=== PATIENT | male | born 1955 | race African-American/Black ===

== ENCOUNTER 2017-03-04 10:58 | Inpatient (IN) | payer MEDICARE, MEDICAID ==
[2017-03-04 12:26] LABS: Prothrombin Time 11.8 SEC (12.0-14.7)
[2017-03-04 12:27] LABS: PTT 28.2 SEC (22.9-36.1)
[2017-03-04 12:40] LABS: ALT (SGPT) 116 U/L (8-55); AST (SGOT) 101 U/L (5-34); Alkaline Phosphatase 263 U/L (40-150); Anion Gap 17 mmol/L (10-20); BUN (Urea Nitrogen) 39 mg/dL (8.4-25.7); Bilirubin, Total 0.3 mg/dL (0.2-1.2); Calc. Creatinine Clearance 0 mL/min (70-130); Carbon Dioxide 16 mmol/L (23-31); Chloride 112 mmol/L (98-107); Estimated GFR-MDRD 21; Globulin 4.7 g/dL (2.4-3.5); Protein, Total 8.9 g/dL (5.8-8.1)
[2017-03-04 12:45] LABS: Hematocrit 47.7 % (42.0-52.0); Mean Platelet Volume 10.4 fL (7.4-10.4); Red Blood Cell (RBC) Count 5.02 mill/uL (4.70-6.10); White Blood Cell (WBC) Count 8.3 thou/uL (4.8-10.8)
[2017-03-04 12:46] LABS: Band 1 % (5-11); Neutrophil 32 % (42-75)
[2017-03-04 15:07] VITALS: BMI 26.8
[2017-03-04] MEDS ORDERED: Ondansetron ODT 4 MG TAB SL PRN (15:10)
[2017-03-04] MEDS ORDERED: Ondansetron HCl/PF 4 MG/2 ML Vial IVP PRN ×2 (15:10→15:18)
[2017-03-04] MEDS ORDERED: hydrALAZINE 20 MG/ML VIAL SLOW IVP PRN (15:18)
[2017-03-04] MEDS ORDERED: HYDROcodone/Acetaminophen 5/325 mg Tablet PO PRN (15:18)
[2017-03-04] MEDS ORDERED: hydrALAZINE 25 MG TAB PO PRN (15:18)
[2017-03-04] MEDS ORDERED: Acetaminophen 325 MG TAB PO PRN (15:18)
[2017-03-04] MEDS: Heparin 5,000 UNITS/ML VIAL SC SCH ×2 (17:54→22:07)
--- NOTE | 2017-03-04 18:10 | HP ---
The patient currently does not have a primary physician. He says he had been seeing a doctor at [facility] , but he says he believes that his primary care physician and now he is only seeing Dr. Sheree tan for his end-stage renal disease. CHIEF COMPLAINT: "My graft is not functioning anymore." HISTORY OF PRESENT ILLNESS: Mr. Rios is a pleasant 61-year-old -[place] male who has a his tory of end-stage renal disease on hemodialysis. He also has a history of hypertension and hyperpara thyroidism. He was in his usual state of health until he noticed that his fistula was not working. Apparently, he came in for dialysis and they were unable to access it. There was no thrill or any br uit present. For this reason, he was sent over to our facility for admission. He says that he has n ot had any complaints. He denies any pain in his arm. He denies any swelling. He has not had any o ther symptoms such as chest pain or shortness of breath. He denies feeling dizzy or lightheaded and actually feels fine. REVIEW OF SYSTEMS: CONSTITUTIONAL: There have been no fever, no chills, no night sweats, no weight loss. HEENT: No headaches, no dizziness, no visual changes, no sore throat, no rhinorrhea, neck malorie n, no adenopathy. PULMONARY: No hemoptysis, no cough, no wheezing. CARDIOVASCULAR: He denies any chest pain, no shortness of breath, no PND, no orthopnea. GASTROINTESTINAL: He denies abdominal malorie n, no nausea, no vomiting, no change in bowels. GENITOURINARY: No urinary frequency, hematuria, no hesitancy. NEUROLOGIC: No focal weakness, numbness, no seizures. PSYCHIATRIC: No symptoms of anxi ety or depression. SKIN AND INTEGUMENT: No skin changes. No rash. PAST MEDICAL HISTORY: Significant for hypertension, end-stage renal disease on hemodialysis, hyperpa rathyroidism, coronary artery disease, hyperlipidemia, and cerebrovascular disease. PAST SURGICAL HISTORY: He has had right arm upper extremity fistula placed. He also has a left arm fistula which is nonfunctioning. He has had cholecystectomy. ALLERGIES: No known drug allergies. SOCIAL HISTORY: He is single. He lives alone. He smokes about half a pack of cigarettes a day. He also drinks about 3-4 beers daily. FAMILY HISTORY: Significant for hypertension and diabetes. CURRENT MEDICATIONS: The patient says he is not taking any medications. When asked if this was felicia use he was instructed not to, he is a bit elusive. He says that he had been on Sensipar before, but was taken off of it and is currently not taking any medications. PHYSICAL EXAMINATION: GENERAL: He is alert and oriented. He appears to be in no acute distress. He is well-developed and well-nourished. VITAL SIGNS: Blood pressure was 149/99, heart rate 67, respiratory rate of 19, temperature is 97.7. HEENT: Pupils are equal, round, and reactive. Extraocular muscles are intact. His sclerae are anic teric. Throat no erythema, no exudates. NECK: There is no adenopathy, no bruits. LUNGS: Clear to auscultation. I did not appreciate any wheezing or rales. CARDIOVASCULAR: He has a normal S1 and S2. I did not appreciate an S3 or S4. No murmurs, clicks or rubs. ABDOMEN: Soft, nontender, and nondistended. Positive for bowel sounds. There is no rebound, no gua rding. EXTREMITIES: He has got some trace pedal edema on the right greater than the left, but otherwise, th ere is no edema. He has got palpable dorsalis pedis pulses. Neurologic: Neurologically, the exam is nonfocal. LABORATORY DATA: His white blood cell count is 8.3, hemoglobin 15.1, hematocrit is 47.7, and platele t count is 154. INR is 0.9. Sodium 139, potassium 5.7, chloride is 112, CO2 of 16, BUN of 39, creat inine 3.5, and glucose of 74. ASSESSMENT AND PLAN: 1. This is a pleasant 61-year-old gentleman that was sent over to the emergency room due to a nonfun ctioning arteriovenous fistula. His earth burner has already been contacted and the plan is for an e mergent dialysis access to be placed. The patient's blood pressure is slightly elevated; however, he did not have his dialysis today. He is not on any medications for blood pressure. Therefore, we wi ll monitor the trend and treat him with medication p.r.n. and hold off starting any medication unless indicated. 2. History of coronary artery disease, again not on any medications. He likely would benefit at [facility] from an aspirin daily, possibly even a very low dose beta sukhi; however, will review further hi s records and possibly discuss with his earth burner whether or not there is any specific contraindic ation for medications and he will be placed on deep venous thrombosis and gastrointestinal prophylaxi s.
[2017-03-04] MEDS: Docusate 100 MG CAP PO SCH (22:03)
[2017-03-04] MEDS: Famotidine 20 MG TAB PO SCH ×2 (22:03→22:07)
--- NOTE | 2017-03-04 22:17 | OP ---
PROCEDURE: Right femoral dialysis catheter placement under ultrasound guidance. INDICATION: Hyperkalemia with clotted access. [employer] APPLICATION DEVELOPER: Manjit Gomez M.D. MEDICATION: A 2% lidocaine. DETAILS OF PROCEDURE: After informed consent was obtained, the patient was prepped and draped in a s terile fashion. The right femoral vein was approached in layers under real time ultrasound guidance. After serial dilatation, a Trialysis catheter was secured in place and all ports were flushed. The patient tolerated the procedure very well with no immediate postop complications. Line is good for use for hemodialysis.
--- NOTE | 2017-03-05 00:20 | CON ---
DATE OF CONSULTATION: 03/04/2017 CONSULTING PHYSICIAN: Dr. Manjit Gomez. REQUESTING PHYSICIANS: ER physician and Dr. Roca. REASON FOR CONSULTATION: Hyperkalemia in a patient with end-stage renal disease with clotted access. IMPRESSION: 1. Hyperkalemia in the context of problem #2. 2. End-stage renal disease. 3. Clotted right upper arm graft. PLAN: 1. Emergent hemodialysis to address the hyperkalemia pending thrombectomy of his graft, which can on ly be done on Tuesday. 2. Low potassium diet. 3. Status post hemodialysis. Patient's hyperkalemia is likely to be resolved. Therefore, in the mo rn, a repeat chemistry will be done and if it shows that the potassium has been resolved, patient can be discharged at that time for thrombectomy to be done as an outpatient on Tuesday. HISTORY OF PRESENT ILLNESS: A 61-year-old gentleman with end-stage renal disease, hemodialysis depen dent on a Tuesday, Tuesday and Tuesday schedule, who was said to have missed a dialysis session. How ever, was supposed to go to dialysis today, but unfortunately his right upper arm graft was clotted; therefore, has no way of undergoing hemodialysis. Patient presented to the ER for evaluation and was noted to have hyperkalemia. As a result of this, decision has been taken to involve Renal in the ma nagement of this case. PAST MEDICAL HISTORY: Significant for end-stage renal disease, hemodialysis dependent, hyperparathyr oidism and one episode of seizure. MEDICATIONS: Reviewed as documented on [employer]. ALLERGIES: No known drug allergies. FAMILY HISTORY: Not significantly related to the presenting illness. PHYSICAL EXAMINATION: GENERAL: The patient was found not to be in any obvious distress, noted with the following. VITAL SIGNS: Afebrile, blood pressure 134/80, respiratory rate of 18 and O2 sat 98%. HEENT: Unremarkable with moist oral mucosa. No conjunctival injection or icterus. NECK: Supple. CARDIOVASCULAR SYSTEM: First and second heart sounds were heard. RESPIRATORY SYSTEM: Clear to auscultation. DIGESTIVE SYSTEM: Revealed a benign abdomen. EXTREMITIES: No peripheral edema. SKIN: No new gross rash. LYMPHATICS: No peripheral lymphadenopathy. SUMMARY: A 61-year-old gentleman with end-stage renal disease, hemodialysis dependent, who presented here with clotted access and noted to be hyperkalemic in need for emergent hemodialysis. Thank you for this consultation. We will follow with you.
[2017-03-05 06:21] LABS: Anion Gap 11 mmol/L (10-20); BUN (Urea Nitrogen) 21 mg/dL (8.4-25.7); Calc. Creatinine Clearance 44 mL/min (70-130); Calcium 9.2 mg/dL (7.8-10.44); Carbon Dioxide 27 mmol/L (23-31); Chloride 106 mmol/L (98-107); Estimated GFR-MDRD 31
[2017-03-05 06:37] LABS: Hematocrit 43.2 % (42.0-52.0); Mean Platelet Volume 10.2 fL (7.4-10.4); Neutrophil 40 % (42-75); Red Blood Cell (RBC) Count 4.59 mill/uL (4.70-6.10); White Blood Cell (WBC) Count 5.7 thou/uL (4.8-10.8)
[2017-03-05] MEDS: Famotidine 20 MG TAB PO SCH (08:26)
[2017-03-05] MEDS: Docusate 100 MG CAP PO SCH (08:26)
[2017-03-05] MEDS: Heparin 5,000 UNITS/ML VIAL SC SCH (08:27)
--- NOTE | 2017-03-05 09:51 | PDOC.PN ---
- Subjective Encounter Start Date: 03/05/17 Encounter Start Time: 09:49 Mr. Rios was seen today in follow-up of clotted AV- fistula. he says he is feeling fine this morning, and has no complaints. - Objective Resuscitation Status: Resuscitation Status FULL:Full Resuscitation MAR Reviewed: Yes Vital Signs & Weight: Vital Signs (12 hours) Temp Pulse Resp BP Pulse Ox 03/05/17 08:00 97.9 F 59 L 17 139/85 95 03/05/17 03:25 97.7 F 57 L 16 113/70 03/04/17 22:30 98.0 F 70 18 162/91 H Weight Weight 222 lb I&O: 03/04/17 03/05/17 03/06/17 06:59 06:59 06:59 Intake Total 375 120 Output Total 400 Balance -25 120 Result Diagrams: 03/05/17 05:23 03/05/17 05:23 Phys Exam - Physical Examination HEENT: PERRLA Respiratory: no wheezing, no rales, no rhonchi, clear to auscultation bilateral Cardiovascular: RRR, no significant murmur Gastrointestinal: soft, non-tender, positive bowel sounds Musculoskeletal: no edema Dx/Plan (1) Dialysis AV fistula malfunction Code(s): T82.590A - [facility] COMPL OF SURGICALLY CREATED ARTERIOVENOUS FISTULA, INIT Status: Acute (2) Hyperkalemia Code(s): E87.5 - HYPERKALEMIA Status: Acute (3) End stage renal failure on dialysis Code(s): N18.6 - END STAGE RENAL DISEASE; Z99.2 - DEPENDENCE ON RENAL DIALYSIS Status: Chronic - Plan * AV- fistula malfunction- Discussed with Dr. Saravia. He will see patient on Tuesday in his dialysis center, and will perform the procedure to de-clott the access * Hyperkalemia- resolved with dialysis yesterday * Patient is stable for discharge home.
[2017-03-05 12:20] VITALS: BP 148/82; TEMP 98.1
--- NOTE | 2017-03-05 16:40 | DIS ---
DATE OF ADMISSION: 03/04/2017 DATE OF DISCHARGE: 03/05/2017 PRIMARY CARE PHYSICIAN: None. DISCHARGE DISPOSITION: Home. PRIMARY DISCHARGE DIAGNOSES: 1. Clotted arteriovenous fistula. 2. End-stage renal disease on hemodialysis. 3. Hypertension, currently not on medications. 4. Coronary artery disease. 5. History of hyperlipidemia. 6. Cerebrovascular disease. DISCHARGE MEDICATIONS: None. The patient will discuss with Dr. Saravia which medications he need s to be taking. I discussed this with Dr. Saravia over the phone as well prior to discharge. CODE STATUS: FULL CODE. ALLERGIES: No known drug allergies. HOSPITAL COURSE: Mr. Rios is a pleasant 61-year-old gentleman who noticed that his dialysis cathet er was clotted. He was unable to undergo dialysis and as such his cardiology associate instructed him to com e to the emergency room. He was admitted and a temporary dialysis catheter was placed. He underwent emergent dialysis. He had been hyperkalemic and post-dialysis, his potassium was corrected. The pl an is for the patient to see Dr. Patricia Saravia in his office on Tuesday at which time the dialys is catheter will be declotted. Dr. Saravia has requested that the temporary catheter be removed a nd he will go over his medications in the outpatient setting to see if he requires any prescription m edications.
--- NOTE | 2017-03-06 07:14 | PRG ---
DATE OF SERVICE: 03/05/2017 SUBJECTIVE: The patient is noted with no new complaints. OBJECTIVE: VITAL SIGNS: Afebrile with temperature 97.9, pulse 59, respiratory rate 17, O2 saturation 97%, blood pressure 148/82. HEENT: Unremarkable with moist oral mucosa. No conjunctival injection or icterus. . IMPRESSION: 1. End-stage renal disease on hemodialysis. 2. Hyperkalemia since resolved, status post hemodialysis. PLAN: 1. The patient from the renal standpoint is good for discharge. 2. He will follow up with on Tuesday to reevaluate the access on Tuesday. 3. Further management to be dependent on the clinical course.
== END 2017-03-05 12:40 | disposition home or self-care (01) | DRG 314 ==
LOC: ERS 10:58 → 2NO 14:27
PROVIDERS: ADMIT Internal Medicine; ATTEND Internal Medicine
PROC: 5A1D70Z Performance of Urinary Filtration, Intermittent, Less than 6 Hours Per Day (ICD-10-PCS; principal; 2017-03-04)
DX: T82.590A Other mechanical complication of surgically created arteriovenous fistula, initial encounter (principal); N18.6 End stage renal disease; Z99.2 Dependence on renal dialysis; F17.210 Nicotine dependence, cigarettes, uncomplicated; Z86.73 Personal history of transient ischemic attack (TIA), and cerebral infarction without residual deficits; I25.10 Atherosclerotic heart disease of native coronary artery without angina pectoris; E87.5 Hyperkalemia
CPT/HCPCS: 36415; 80048; 80053; 85025; 85610; 85730; 90935; 93005; C1752; G0257; J1644

== ENCOUNTER 2017-03-25 15:24 | Inpatient (IN) | payer MEDICARE, MEDICAID ==
--- NOTE | 2017-03-25 16:56 | RAD ---
AP VIEW OF THE CHEST 03/25/17 INDICATION: weakness. IMPRESSION: No acute cardiopulmonary abnormality. The examination is not appreciably changed from the comparison dated 11/24/16. The left IJ central venous catheter has been removed. Endovascular stent in the axilla ry regions are similar appearing. POS: CARYN
[2017-03-25 17:17] LABS: Hemoglobin 9.4 g/dL (14.0-18.0); Mean Corpuscular HGB CONC 32.5 g/dL (32.0-36.0); Mean Corpuscular Hemoglobin 29.3 pg (27.0-31.0); Mean Corpuscular Volume 90.3 fl (80.0-94.0); Mean Platelet Volume 11.8 fL (7.4-10.4); Platelet Count 190 thou/uL (130-400); White Blood Cell (WBC) Count 14.9 thou/uL (4.8-10.8)
[2017-03-25 17:34] LABS: ALT (SGPT) 197 U/L (8-55); AST (SGOT) 286 U/L (5-34); Albumin 2.8 g/dL (3.4-4.8); Alkaline Phosphatase 374 U/L (40-150); Anion Gap 22 mmol/L (10-20); BUN (Urea Nitrogen) 123 mg/dL (8.4-25.7); Bilirubin, Total 6.8 mg/dL (0.2-1.2); CK (CPK) 141 U/L (30-200); Calc. Creatinine Clearance 0 mL/min (70-130); Calcium 8.7 mg/dL (7.8-10.44); Carbon Dioxide 13 mmol/L (23-31); Chloride 108 mmol/L (98-107); Estimated GFR-MDRD 5; Globulin 4.6 g/dL (2.4-3.5); Glucose 106 mg/dL (80-115); Potassium 6.4 mmol/L (3.5-5.1); Protein, Total 7.4 g/dL (5.8-8.1); Sodium 137 mmol/L (136-145)
[2017-03-25 17:39] LABS: CKMB 0.2 ng/mL (0-6.6); Troponin I 0.019 ng/mL (< 0.028)
[2017-03-25 17:49] LABS: Anisocytosis SLIGHT = 6-15 cells (100X) (0-5/hpf); Band 19 % (5-11); Burr Cells SLIGHT = 2-5 cells (100X) (0-1/hpf); Large Platelets SLIGHT; Lymphocytes 6 % (21-51); MDiff Complete? YES; Monocytes 2 % (0-10); Neutrophil 71 % (42-75); Ovalocytes SLIGHT = 2-5 cells (100X) (0-1/hpf); PLT Morphology Comment Appears Adequate; Polychromasia SLIGHT = 2-3 cells (100X) (0-2/hpf); Reactive Lymphocytes 2 % (0-10); Schistocytes SLIGHT = 2-5 cells (100X) (0-1/hpf); Target Cells SLIGHT = 2-5 cells (100X) (0-1/hpf); Tear Drops SLIGHT = 2-5 cells (100X) (0-1/hpf)
[2017-03-25 19:39] LABS: HBSAg Index 0.09 S/CO (0-0.99); Hep B Surf Ag Non-Reactive S/CO (NonReactive)
[2017-03-25 20:40] VITALS: BMI 30.8
[2017-03-25] MEDS ORDERED: Dextrose 5 % And 0.9 % NaCl 1,000 ML IV SCH ×2 (20:45)
--- NOTE | 2017-03-25 20:56 | PDOC.EVN ---
Event Note - Event Note Event Note: [id number] 1. ESRD 2. Hyperkalemia 3. Metabolic acidosis 4. AOCD 5. Acute bronchitis plan: see orders
[2017-03-25] MEDS ORDERED: Acetaminophen 325 MG TAB PO SCH (21:15)
[2017-03-25] MEDS ORDERED: Ondansetron HCl/PF 4 MG/2 ML Vial IVP PRN (21:41)
[2017-03-25] MEDS ORDERED: HYDROcodone/Acetaminophen 5/325 mg Tablet PO PRN (21:41)
[2017-03-25] MEDS ORDERED: Piperacillin/Tazobactam 4.5 GM in Sodium Chloride 0.9% 100 ML IVPB SCH (22:00)
[2017-03-25] MEDS: Piperacillin/Tazobactam 2.25 GM in Sodium Chloride 0.9% 100 ML IVPB SCH (22:00)
[2017-03-25] MEDS ORDERED: Sodium Chloride 0.9% 1,000 ML IV SCH (23:45)
--- NOTE | 2017-03-25 23:53 | HP ---
DATE OF ADMISSION: 03/25/2017 CHIEF COMPLAINT: Cough, chest congestion, fatigue. HISTORY OF PRESENT ILLNESS: Patient is a 61-year-old male with past medical history of end-stage rosa al disease, hypertension, hyperparathyroidism, coronary artery disease, hyperlipidemia, cerebrovascul ar accident, now came to the ER for fatigue. Patient is a poor historian. During history taking, luc merino kept saying yes or no and not answering all the questions. According to the notes and per cameron ent and ED physician, patient came to the ER because of the fatigue and cough. Cough associated with some sputum production and chest congestion also. Did not give what color the sputum is. Patient c omplains of an episode of vomiting also. Patient said he did not go to dialysis for the last few wee ks. Patient was recently discharged from the hospital on 03/05/2017 with diagnose of clotted AV fist roseanne. Patient denies any chest pain, denies any palpitations. PAST MEDICAL HISTORY: As per HPI. PAST SURGICAL HISTORY: AV fistula placement. SOCIAL HISTORY: Positive for alcohol usage, positive for smoking. Denies any drugs. FAMILY HISTORY: Positive for diabetes and hypertension. MEDICATIONS: Not able to obtain from the patient. REVIEW OF SYSTEMS: Patient is saying yes or no. Positive for cough and sputum production. All othe r review systems when I asked him he denied it. PHYSICAL EXAMINATION: CONSTITUTIONAL/VITAL SIGNS: At the time of H&P performed, blood pressure is 110/60, heart rate 75, r espiratory rate 18. GENERAL: The patient appears tired. HEENT: Nose normal. Anterior nares patent. Teeth poor dentition. NECK: Supple, no JVD. CARDIOVASCULAR: S1, S2 present. Regular rate and rhythm. No murmurs, no rubs, no gallops. RESPIRATORY SYSTEM: Diminished breath sounds bilaterally. Positive for crackles. Poor inspiratory effort. GASTROINTESTINAL: Abdomen is soft, nontender, no guarding, no organomegaly. INTEGUMENTARY: Dry skin. Loss of velocity seen. Chronic skin changes. MUSCULOSKELETAL: Positive for edema. Moves all 4 joints. PSYCHIATRIC: Mood calm. CRANIAL NERVE SYSTEM: Awake, follow some commands. LABORATORY DATA: At the time of H&P performed sodium 137, potassium 6.4, chloride 108, CO2 is 13, BU N of 123, creatinine 13.52. AST 286, ALT 197, alkaline phosphatase 374, albumin 2.8, globulin 4.6. White count 14.9, hemoglobin 9.4, platelet count is 190. ASSESSMENT AND PLAN: The patient is 61 years old male. 1. End-stage renal disease plus hyperkalemia, metabolic acidosis. Patient was seen by Dr. Devendra cavazos. Already, patient is scheduled to have dialysis tonight. I did speak to Dr. Saravia. He will get dialysis tonight. Patient is currently on IV fluids. I will go ahead and hold IV fluids at this time. 2. Hyperkalemia should improve with dialysis. Patient does not get dialysis tonight then we will go ahead and treat hyperkalemia. Per patient's managing cognitive engineer, patient is supposed to get dialysis. 3. Hypertension. Hold blood pressure medications if blood pressure is on the low side. 4. Metabolic acidosis. Monitor bicarbonate level closely. Plan to give 1 amp of bicarbonate push a lso. 5. Acute bronchitis. Plan to start patient on IV Zithromax and monitor patient closely. 6. History of anemia of chronic disease. Monitor hemoglobin closely. Case was discussed in detail with the patient.
[2017-03-25] MEDS: Hydrocortisone Sod Succ/PF 100 mg/2 ml Vial IVP SCH (23:58)
[2017-03-26] MEDS ORDERED: Albumin 25% 25 GM/100 ML BOT IVPB SCH (00:15)
[2017-03-26] MEDS ORDERED: Midodrine HCl 5 MG TAB PO SCH (00:15)
[2017-03-26 05:14] LABS: Albumin 2.8 g/dL (3.4-4.8); Anion Gap 19 mmol/L (10-20); BUN (Urea Nitrogen) 83 mg/dL (8.4-25.7); Calc. Creatinine Clearance 11 mL/min (70-130); Calcium 8.9 mg/dL (7.8-10.44); Carbon Dioxide 21 mmol/L (23-31); Chloride 105 mmol/L (98-107); Estimated GFR-MDRD 7; Glucose 130 mg/dL (80-115); Potassium 4.8 mmol/L (3.5-5.1); Sodium 140 mmol/L (136-145)
[2017-03-26 05:33] LABS: Band 27 % (5-11); Hemoglobin 8.7 g/dL (14.0-18.0); Hypochromia SLIGHT = 6-15 cells (100X) (0-5/hpf); Lymphocytes 7 % (21-51); MDiff Complete? YES; Mean Corpuscular HGB CONC 34.1 g/dL (32.0-36.0); Mean Corpuscular Hemoglobin 30.2 pg (27.0-31.0); Mean Corpuscular Volume 88.4 fl (80.0-94.0); Mean Platelet Volume 11.9 fL (7.4-10.4); Metamyelocyte 3 % (0-0); Monocytes 6 % (0-10); Myelocyte 2 % (0-0); Neutrophil 55 % (42-75); PLT Morphology Comment Appears Adequate; Platelet Count 199 thou/uL (130-400); RBC Distribution Width 15.7 % (11.5-14.5); Red Blood Cell (RBC) Count 2.87 mill/uL (4.70-6.10); White Blood Cell (WBC) Count 13.2 thou/uL (4.8-10.8)
[2017-03-26] MEDS: Piperacillin/Tazobactam 2.25 GM in Sodium Chloride 0.9% 100 ML IVPB SCH ×3 (05:59→21:21)
--- NOTE | 2017-03-26 08:23 | CON ---
DATE OF CONSULTATION: 03/25/2017 CONSULTING PHYSICIAN: Dr. Manjit Gomez. REQUESTING PHYSICIAN: with the ER. REASON FOR CONSULTATION: Need for emergency dialysis. IMPRESSION: 1. Sepsis, query source likely of biliary origin, but cannot rule out urinary tract infection. 2. Hyperkalemia in the context of skipped dialysis treatment. 3. Severe metabolic acidosis in the context of sepsis and skipped dialysis treatment. 4. End-stage renal disease, has no dialyzed this week. PLAN: 1. IV fluid bolus to show off the hemodynamics. 2. Broad-spectrum antibiotics bearing in mind coverage for biliary system. 3. Emergency hemodialysis would try to do a gentle dialysis tonight and a full dialysis tomorrow. T his is more or less to address the hyperkalemia and also to avoid dysequilibrium syndrome. HISTORY OF PRESENT ILLNESS: History is that of 61-year-old gentleman with end-stage renal disease, h emodialysis dependent on Tuesday, Tuesday, Tuesday, who has not dialyzed this week and presented to [facility] ER and showed obvious signs of sepsis. Patient noted with elevated potassium above 6 and is in si gnificant physical distress. PAST MEDICAL HISTORY: Significant for hypertension, end-stage renal disease, hyperparathyroidism, dy slipidemia, coronary artery disease, and CVA in the past. ALLERGIES: No known drug allergies. SOCIAL HISTORY: Significant for tobacco use. Denies alcohol. Patient is single. FAMILY HISTORY: Significant for diabetes. MEDICATIONS: Reviewed as documented on [employer]. ALLERGIES: No known drug allergies. LABORATORY INVESTIGATION: Significant for white count of 14,900. Potassium of 6.4, bicarbonate of 1 3, BUN of 123 with creatinine of 13.52, total bilirubin of 6.8. AST, ALT, and alkaline phosphatase a re all elevated. PHYSICAL EXAMINATION: GENERAL: Patient was found to be ill-looking noted with the following vital signs. VITAL SIGNS: Tachycardic, heart rate of 104, blood pressure of 100/60, respiratory rate of 28, O2 sa t of 96%. HEENT: Remarkable for conjunctival icterus. CARDIOVASCULAR SYSTEM: First and second heart sounds were heard, tachycardic. RESPIRATORY SYSTEM: Revealed of rales. DIGESTIVE SYSTEM: Revealed a benign abdomen. EXTREMITIES: No peripheral edema. SKIN: No new gross rash. LYMPHATICS: No peripheral lymphadenopathy. SUMMARY: A 61-year-old gentleman who presented here with obvious signs of sepsis. Thank you for this consultation. We will follow with you.
--- NOTE | 2017-03-26 08:59 | ULT ---
T UPPER QUADRANT ULTRASOUND: HISTORY: Abdominal pain. Sepsis. FINDINGS: The patient is post cholecystectomy. The common bile duct is within normal range measured at 4-5 mm. Liver appears mildly prominent measuring up to 3 cm. The pancreas is mostly obscured but appears u nremarkable as visualized. The right kidney is abnormal. There is cortical thinning and increased cortical echogenicity. Thee is a small cyst in the superior right kidney measuring up to 2.0 cm. No evidence of right hydronephr osis. IMPRESSION: 1. Post cholecystectomy. 2. Mild hepatomegaly. 3. The right kidney is abnormal with increased cortical echogenicity. Small right renal cyst. POS: H
[2017-03-26] MEDS: Hydrocortisone Sod Succ/PF 100 mg/2 ml Vial IVP SCH ×3 (09:27→23:53)
[2017-03-26] MEDS: Heparin 5,000 UNITS/ML VIAL SC SCH ×3 (09:28→21:21)
[2017-03-26] MEDS ORDERED: cefTRIAXone\\ROCEPHIN 1 GM in Sodium Chloride 0.9% 100 ML IVPB SCH (10:30)
[2017-03-26] MEDS ORDERED: Heparin 1,000 UNITS/ML VIAL ONE (11:11)
[2017-03-26] MEDS ORDERED: cefTRIAXone\\ROCEPHIN 1 GM, Syringe 0.4 ML in Sterile Water 9.6 ML SLOW IVP SCH (11:30)
--- NOTE | 2017-03-26 12:00 | PDOC.PN ---
- Subjective Encounter Start Date: 03/26/17 Encounter Start Time: 11:00 Subjective: awake, watching tv, not in distress - Objective MAR Reviewed: Yes Vital Signs & Weight: Vital Signs (12 hours) Temp Pulse Resp BP Pulse Ox 03/26/17 11:50 99.3 F 88 24 H 96/64 100 03/26/17 08:00 98.6 F 83 20 98 03/26/17 07:00 98.6 F 83 20 93/61 98 03/26/17 06:00 99.0 F 87 20 115/67 99 03/26/17 04:00 99.7 F H 86 20 108/64 100 03/26/17 00:45 112/70 03/26/17 00:31 92/50 L 03/26/17 00:15 76/60 L 03/26/17 00:00 99.1 F 98 22 H 80/42 L 99 Weight Weight 227 lb 6.4 oz I&O: 03/25/17 03/26/17 03/27/17 06:59 06:59 06:59 Intake Total 1800 Balance 1800 Result Diagrams: 03/26/17 04:27 03/26/17 04:27 Additional Labs: Accuchecks 03/25/17 20:39 POC Glucose 186 H Phys Exam - Physical Examination HEENT: PERRLA, sclera anicteric Neck: no JVD, supple Respiratory: no wheezing rales+ Cardiovascular: RRR, no significant murmur Gastrointestinal: soft, non-tender, positive bowel sounds Musculoskeletal: no edema, pulses present Neurological: non-focal, moves all 4 limbs Psychiatric: A&O x 3 Dx/Plan (1) Sepsis Status: Acute (2) Volume overload Code(s): E87.70 - FLUID OVERLOAD, UNSPECIFIED Status: Acute (3) Non-compliance with renal dialysis Code(s): Z91.15 - PATIENT'S NONCOMPLIANCE WITH RENAL DIALYSIS Status: Acute (4) DM type 2 (diabetes mellitus, type 2) Status: Chronic Qualifiers: Diabetes mellitus complication status: with kidney complications Diabetes mellitus complication detail: with chronic kidney disease Diabetes mellitus oil heaterman insulin use: without oil heaterman use Chronic kidney disease stage: on chronic dialysis Qualified Code(s): E11.22 - Type 2 diabetes mellitus with diabetic chronic kidney disease; N18.6 - End stage renal disease; N18.6 - End stage renal disease; N18.6 - End stage renal disease; N18.6 - End stage renal disease; Z99.2 - Dependence on renal dialysis; Z99.2 - Dependence on renal dialysis; Z99.2 - Dependence on renal dialysis; Z99.2 - Dependence on renal dialysis (5) Moderate malnutrition Code(s): E44.0 - MODERATE PROTEIN-CALORIE MALNUTRITION Status: Chronic (6) CAD (coronary artery disease) Code(s): I25.10 - ATHSCL HEART DISEASE OF [place] CORONARY ARTERY W/O ANG PCTRS Status: Chronic Qualifiers: Coronary Disease-Associated Artery/Lesion type: [place] artery [place] vs. transplanted heart: [place] heart Associated angina: without angina Qualified Code(s): I25.10 - Atherosclerotic heart disease of [place] coronary artery without angina pectoris (7) Dyslipidemia Code(s): E78.5 - HYPERLIPIDEMIA, UNSPECIFIED Status: Chronic (8) Transaminitis Code(s): R74.0 - NONSPEC ELEV OF LEVELS OF TRANSAMNS & LACTIC ACID DEHYDRGNSE Status: Acute (9) End stage renal failure on dialysis Code(s): N18.6 - END STAGE RENAL DISEASE; Z99.2 - DEPENDENCE ON RENAL DIALYSIS Status: Chronic - Plan had very little fluid removed with HD last evening due to hypotension -: tmax of 101 -: is on zosyn, consult , has 27%bands -: steroids for hypotension, got midodrinex1 yesterday -: echo, elevated lft's likely to passive congestion or due to sepsis * . Review of Systems - Medications/Allergies Allergies/Adverse Reactions: Allergies Allergy/AdvReac Type Severity Reaction Status Date / Time No Known Allergies Allergy Verified 03/04/17 15:13 Medications: Current Medications Acetaminophen (Tylenol) 650 mg PO NOW [facility] Stop: 03/29/17 23:59 Last Admin: 03/25/17 22:00 Dose: 650 mg Hydrocodone Bitart/Acetaminophen ([place] 5/325) 1 tab PO Q4H PRN PRN Reason: Moderate Pain (4-6) Albuterol/Ipratropium (Duoneb) 3 ml NEB [id number] RHETT Heparin Sodium (Porcine) (Heparin) 5,000 units SC TID [facility] Last Admin: 03/26/17 09:28 Dose: 5,000 units Hydrocortisone Sodium Succinate (Solu-Cortef) 100 mg IVP 0800,1600,2359 [facility] Last Admin: 03/26/17 09:27 Dose: 100 mg Piperacillin Sod/Tazobactam (Sod 2.25 gm/ Sodium Chloride) 100 mls @ 200 mls/ hr IVPB Q8HR [facility] Last Admin: 03/26/17 05:59 Dose: 100 mls Ceftriaxone Sodium 1 gm/ (Syringe 0.4 ml/ Sterile Water) 10 mls @ 120 mls/hr SLOW IVP 1130 [facility] Stop: 03/26/17 14:00 Ceftriaxone Sodium 1 gm/ (Syringe 0.4 ml/ Sterile Water) 10 mls @ 120 mls/hr SLOW IVP 1100 [facility] Influenza Virus Vaccine (Fluzone Quad [id number] Syringe) 0.5 ml IM .ONCE ONE Stop: 03/27/17 09:01 Ondansetron HCl (Zofran) 4 mg IVP Q6H PRN PRN Reason: Nausea/Vomiting Pneumococcal Polyvalent Vaccine (Pneumovax 23) 0.5 ml IM .ONCE ONE Stop: 03/27/17 09:01 Sodium Chloride (Flush - Normal Saline) 10 ml IVF Q12HR [facility] Last Admin: 03/26/17 09:28 Dose: 10 ml Sodium Chloride (Flush - Normal Saline) 10 ml IVF PRN PRN PRN Reason: Saline Flush Last Admin: 03/26/17 05:59 Dose: 10 ml
[2017-03-26] MEDS ORDERED: Sodium Chloride 0.9% 500 ML IV SCH (18:00)
--- NOTE | 2017-03-26 18:09 | CON ---
DATE OF CONSULTATION: 03/26/2017 HISTORY OF PRESENT ILLNESS: He is a 61-year-old gentleman admitted with sepsis, hyp ertension. He has seen Dr. Bennett before for MICU console. Rather poor historian, but apparently he sees Nephrology for renal failure. He was dialyzed last night on an emergency basis. A report from the ER states that he is weak, somewhat confused, lethargic, arousable. This has been going on for a pparently a period of time. Apparently, his last dialysis was 3 weeks ago. PAST MEDICAL HISTORY: Seizure disorder, encephalopathy, renal failure. PREVIOUS SURGERIES: Included access, multiple. Cholecystectomy, bladder and kidney surgery and abdo jasmine surgery. SOCIAL HISTORY: Alcoholic and tobacco abuse. HOME MEDICATIONS: Unknown home medicine. REVIEW OF SYSTEMS: Otherwise 10 point negative. PHYSICAL EXAMINATION: VITAL SIGNS: Sats are 98% on room air, temperature is 98, blood pressure 96/61. CHEST: Reveals extensive rhonchi. CARDIAC: Normal S1, S2, no gallops. ABDOMEN: Soft, no masses. EXTREMITIES: He has got an index finger on his left finger, which is black. LABORATORY DATA: White count of 13,000, H&H is 8 and 25, platelet count 119. He has got 55 segs, 2 monocytes, 27 bandemia, 3 metamyelocytes. Creatinine is 9.8. IMAGING: Initial chest x-ray showed no acute infiltrates. He had emergency abdominal ultrasound, wh ich showed hepatomegaly. IMPRESSION: 1. Acute on chronic renal failure. 2. Abnormal liver function. 3. Encephalopathy. 4. Sepsis related to alcohol abuse and tobacco abuse. PLAN: He is on a single antibiotic of Zosyn. I may add Rocephin to his present regime until we get the cultures back. I agree with stress dose of steroids, neb treatments, supportive care.
[2017-03-26] MEDS: Sodium Chloride 0.9% 1,000 ML IV SCH (18:55)
--- NOTE | 2017-03-26 20:10 | PRG ---
DATE OF SERVICE: 03/26/2017 SUBJECTIVE: The patient was seen and examined and is ill-looking. OBJECTIVE: VITAL SIGNS: Blood pressure systolic in the 70s, O2 sat of 100%, heart rate of 80-95, respiratory ra te of 24. HEENT: Remarkable for conjunctival icterus. CARDIOVASCULAR: First and second heart sounds were heard. RESPIRATORY: Showed some transmitted lower rales. DIGESTIVE SYSTEM: Revealed a benign abdomen with positive bowel sounds. EXTREMITIES: No peripheral edema. SKIN: No new gross rash. IMPRESSION: 1. End-stage renal disease, hemodialysis dependent. 2. Hyperkalemia, resolved status post hemodialysis. 3. Sepsis with hemodynamic instability. PLAN: 1. Infuse 500 mL bolus of saline and continue with gentle rehydration. 2. Start this patient on midodrine. 3. Continue hydrocortisone. 4. Further management to be dependent on the clinical course.
[2017-03-26] MEDS: Midodrine HCl 5 MG TAB PO SCH (21:21)
[2017-03-26] MEDS ORDERED: Acetaminophen 325 MG TAB PO PRN (21:33)
[2017-03-26] MEDS ORDERED: Nicotine 21 MG PATCH TOP SCH (23:45)
[2017-03-27 04:48] LABS: ALT (SGPT) 119 U/L (8-55); AST (SGOT) 105 U/L (5-34); Albumin 2.6 g/dL (3.4-4.8); Alkaline Phosphatase 259 U/L (40-150); Anion Gap 18 mmol/L (10-20); BUN (Urea Nitrogen) 52 mg/dL (8.4-25.7); Bilirubin, Total 8.6 mg/dL (0.2-1.2); Calc. Creatinine Clearance 16 mL/min (70-130); Calcium 8.1 mg/dL (7.8-10.44); Carbon Dioxide 25 mmol/L (23-31); Chloride 99 mmol/L (98-107); Estimated GFR-MDRD 10; Globulin 4.2 g/dL (2.4-3.5); Glucose 168 mg/dL (80-115); Potassium 4.3 mmol/L (3.5-5.1); Protein, Total 6.8 g/dL (5.8-8.1); Sodium 138 mmol/L (136-145)
[2017-03-27] MEDS: Piperacillin/Tazobactam 2.25 GM in Sodium Chloride 0.9% 100 ML IVPB SCH (06:03)
[2017-03-27 06:40] LABS: Band 9 % (5-11); Hemoglobin 8.9 g/dL (14.0-18.0); Lymphocytes 7 % (21-51); MDiff Complete? YES; Mean Corpuscular HGB CONC 33.1 g/dL (32.0-36.0); Mean Corpuscular Hemoglobin 29.4 pg (27.0-31.0); Mean Corpuscular Volume 88.8 fl (80.0-94.0); Mean Platelet Volume 11.7 fL (7.4-10.4); Monocytes 6 % (0-10); Neutrophil 75 % (42-75); PLT Morphology Comment Appears Adequate; Platelet Count 229 thou/uL (130-400); RBC Distribution Width 15.8 % (11.5-14.5); RBC Morphology Normal; Reactive Lymphocytes 3 % (0-10); Red Blood Cell (RBC) Count 3.02 mill/uL (4.70-6.10); White Blood Cell (WBC) Count 11.2 thou/uL (4.8-10.8)
[2017-03-27] MEDS: Hydrocortisone Sod Succ/PF 100 mg/2 ml Vial IVP SCH ×2 (08:34→15:27)
[2017-03-27] MEDS: Midodrine HCl 5 MG TAB PO SCH ×3 (08:34→21:20)
[2017-03-27] MEDS: Heparin 5,000 UNITS/ML VIAL SC SCH ×2 (08:42→21:21)
[2017-03-27] MEDS: Sodium Chloride 0.9% 1,000 ML IV SCH (09:00)
[2017-03-27] MEDS ORDERED: FLU VACC QS2017-18 36 mo. & older 0.5 ML SYRINGE IM ONE (09:00)
[2017-03-27] MEDS: cefTRIAXone\\ROCEPHIN 1 GM, Syringe 0.4 ML in Sterile Water 9.6 ML SLOW IVP SCH (11:37)
--- NOTE | 2017-03-27 12:03 | PDOC.PN ---
- Subjective Encounter Start Date: 03/27/17 Encounter Start Time: 07:45 Subjective: awake, not in distress, no sob or palp - Objective MAR Reviewed: Yes Vital Signs & Weight: Vital Signs (12 hours) Temp Pulse Resp BP Pulse Ox 03/27/17 11:00 97.5 F L 70 16 98/53 L 93 L 03/27/17 08:35 97 F L 72 20 100 03/27/17 08:30 72 20 98 03/27/17 07:45 97.0 F L 70 20 121/72 100 03/27/17 03:48 97.7 F 60 18 92/53 L 95 Weight Weight 227 lb 6.4 oz I&O: 03/26/17 03/27/17 03/28/17 06:59 06:59 06:59 Intake Total 1800 2640 Balance 1800 2640 Result Diagrams: 03/27/17 04:08 03/27/17 04:08 Phys Exam - Physical Examination HEENT: PERRLA, sclera anicteric Neck: no JVD, supple Respiratory: no wheezing, no rales Cardiovascular: RRR, no significant murmur Gastrointestinal: soft, non-tender, no distention, positive bowel sounds Musculoskeletal: no edema, pulses present Neurological: non-focal, moves all 4 limbs Dx/Plan (1) Sepsis Status: Acute (2) Volume overload Code(s): E87.70 - FLUID OVERLOAD, UNSPECIFIED Status: Acute (3) Non-compliance with renal dialysis Code(s): Z91.15 - PATIENT'S NONCOMPLIANCE WITH RENAL DIALYSIS Status: Acute (4) DM type 2 (diabetes mellitus, type 2) Status: Chronic Qualifiers: Diabetes mellitus complication status: with kidney complications Diabetes mellitus complication detail: with chronic kidney disease Diabetes mellitus terminal worker insulin use: without senior care use Chronic kidney disease stage: on chronic dialysis Qualified Code(s): E11.22 - Type 2 diabetes mellitus with diabetic chronic kidney disease; N18.6 - End stage renal disease; N18.6 - End stage renal disease; N18.6 - End stage renal disease; N18.6 - End stage renal disease; Z99.2 - Dependence on renal dialysis; Z99.2 - Dependence on renal dialysis; Z99.2 - Dependence on renal dialysis; Z99.2 - Dependence on renal dialysis (5) Moderate malnutrition Code(s): E44.0 - MODERATE PROTEIN-CALORIE MALNUTRITION Status: Chronic (6) CAD (coronary artery disease) Code(s): I25.10 - ATHSCL HEART DISEASE OF [place] CORONARY ARTERY W/O ANG PCTRS Status: Chronic Qualifiers: Coronary Disease-Associated Artery/Lesion type: [place] artery [place] vs. transplanted heart: [place] heart Associated angina: without angina Qualified Code(s): I25.10 - Atherosclerotic heart disease of [place] coronary artery without angina pectoris (7) Dyslipidemia Code(s): E78.5 - HYPERLIPIDEMIA, UNSPECIFIED Status: Chronic (8) Transaminitis Code(s): R74.0 - NONSPEC ELEV OF LEVELS OF TRANSAMNS & LACTIC ACID DEHYDRGNSE Status: Acute (9) End stage renal failure on dialysis Code(s): N18.6 - END STAGE RENAL DISEASE; Z99.2 - DEPENDENCE ON RENAL DIALYSIS Status: Chronic - Plan on zosyn and ceftriaxone, await cultures -: BP ranges from 80/50 to 120/70, is on midodrine and iv steroids -: HD with fluid removal as tolerated -: poor compliance with HD and meds -: to amb as tolerated * . Review of Systems - Medications/Allergies Allergies/Adverse Reactions: Allergies Allergy/AdvReac Type Severity Reaction Status Date / Time No Known Allergies Allergy Verified 03/04/17 15:13 Medications: Current Medications Acetaminophen (Tylenol) 650 mg PO Q6H PRN PRN Reason: Headache/Fever or Pain Last Admin: 03/26/17 21:40 Dose: 650 mg Hydrocodone Bitart/Acetaminophen ([place] 5/325) 1 tab PO Q4H PRN PRN Reason: Moderate Pain (4-6) Albuterol/Ipratropium (Duoneb) 3 ml NEB [id number] [id number] Last Admin: 03/27/17 08:30 Dose: 3 ml Heparin Sodium (Porcine) (Heparin) 5,000 units SC BID RHETT Last Admin: 03/27/17 08:42 Dose: 5,000 units Hydrocortisone Sodium Succinate (Solu-Cortef) 100 mg IVP 0800,1600,2359 [facility] Last Admin: 03/27/17 08:34 Dose: 100 mg Piperacillin Sod/Tazobactam (Sod 2.25 gm/ Sodium Chloride) 100 mls @ 200 mls/ hr IVPB Q8HR [facility] Last Admin: 03/27/17 06:03 Dose: 100 mls Ceftriaxone Sodium 1 gm/ (Syringe 0.4 ml/ Sterile Water) 10 mls @ 120 mls/hr SLOW IVP 1100 [facility] Last Admin: 03/27/17 11:37 Dose: 10 mls Sodium Chloride (Normal Saline 0.9%) 1,000 mls @ 70 mls/hr IV .[id number] [facility] Last Admin: 03/27/17 09:00 Dose: 1,000 mls Midodrine (Proamatine) 5 mg PO TID [facility] Last Admin: 03/27/17 08:34 Dose: 5 mg Ondansetron HCl (Zofran) 4 mg IVP Q6H PRN PRN Reason: Nausea/Vomiting Sodium Chloride (Flush - Normal Saline) 10 ml IVF Q12HR [facility] Last Admin: 03/27/17 09:20 Dose: Not Given Sodium Chloride (Flush - Normal Saline) 10 ml IVF PRN PRN PRN Reason: Saline Flush Last Admin: 03/26/17 05:59 Dose: 10 ml
--- NOTE | 2017-03-27 16:44 | PRG ---
DATE OF SERVICE: 03/27/2017 SUBJECTIVE: Carrillo Rios is awake, alert and responsive, in no distress. OBJECTIVE: VITAL SIGNS: Blood pressure 121/72, temperature is 97 and respirations 20. CHEST: Decreased breath sounds without any wheezing. CARDIAC: Normal S1 and S2. No gallops. ABDOMEN: Soft. No masses. LABORATORY DATA: White count 11,000, hemoglobin and hematocrit is 8 and 26, platelet count normal. Creatinine is 6.0. Abnormal liver function. AST 105. IMPRESSION: 1. Sepsis syndrome. All cultures so far are negative. 2. Renal failure. PLAN: Continue ceftriaxone, steroids and Zosyn. Dialysis tomorrow. He can probably be transferred out of the MICU.
--- NOTE | 2017-03-27 19:44 | CON ---
DATE OF CONSULTATION: 03/27/2017 REASON FOR CONSULTATION: Fever, end-stage renal disease. HISTORY OF PRESENT ILLNESS: A 61-year-old patient with a history of end-stage renal disease, hyperte nsion, and seizure disorder with recurrent episodes of fever sometimes with detectable bacteremia. I n June, I saw him with similar presentation. At that time, he did have flank pain with abnormal uri nalysis. Imaging findings were suggestive of pyelonephritis on the right side. He has had thus far positive blood cultures with Streptococcus, Aeromonas in 08/2015 and then E. coli in June and then i n November with Klebsiella pneumoniae, both with various broad susceptibility phenotype. The imaging s tudies have included abdomen and pelvis CTs and the most recent ones were in 06/2016, which demonstra mohinder edematous right kidney with perinephric stranding as well as stranding along the course of the ri ght ureter. The urinary bladder had marked wall thickening. The more recent scan from 11/2016 with bilateral perinephric stranding and lymph nodes in the upper abdomen. This time, Mr. Rios was admi tted with a somewhat confusing history. He complained of some itching in the legs and arms and then respiratory symptoms with cough, some sputum production, chest congestion, and one episode of vomitin g. On arrival, the patient had a BP 110/60, respiratory rate was 18, and temperature 99.2. The lung s were with diminished breath sounds with some inspiratory crackles. Abdomen is soft and nontender. The initial labs with white cell count 14.9 with some bands of 19% and the expected chemistry findin gs associated with end-stage liver disease. He also has abnormal liver function test with increased AST and ALT, and alkaline phosphatase of 259. The patient had an abdomen ultrasound with mild hepato megaly, abnormal right kidney with increased cortical echogenicity. Urinalysis was not done yet. Cu rrently, Mr. Rios is awake. He denies any headaches. No sore throat, odynophagia, or dysphagia. No neck pain or shoulder pain. Denies any genitourinary symptoms except that he voids a lot anytime he increases his oral intake or liquid intake. Some cough. No abdominal pain. No back pain. No navarro int symptoms. No neurological symptoms. PAST MEDICAL HISTORY: End-stage renal disease; hypertension; coronary artery disease; on hemodialysi s through an AV graft in right upper extremity; multiple prior episodes of bacteremia with gram-negat jadyn rods, Aeromonas, Klebsiella, and E. coli; evidence of pyelonephritis in the past with cystitis an d thickened urinary bladder simpson; prior episode of cholecystitis with cholecystectomy and liver biop sy which demonstrated cholangitis in 2012. ASSESSMENT: 1. End-stage renal disease associated with hypertension and vascular disease. 2. Hemodialysis through an arteriovenous graft. 3. Prior documented episodes of bacteremia associated with likely urinary tract infection with invas jadyn features and pyelonephritis and pyocystitis. 4. New episodes of fever, low grade; general malaise; some cough; some vomiting; abnormal liver func tion tests; and a kidney ultrasound with some abnormalities noted above. DISCUSSION: Differential diagnosis includes an invasive UTI again with associated cystitis, still si gnificant amount of urinary output and possible pyelonephritis. A biliary tract issue would be anoth er possibility. The patient does have evidence of cholestasis in the laboratory results. He may hav e some form of underlying liver disease. There is no evidence of extrahepatic biliary tract obstruct ion. The possibility of transient bacteremia from the urinary tract than the liver changes noted is another consideration. The course of the liver function test in the next few days will determine the need for further biliary tract workup and Gastroenterology consultation. The issue related to the u rinary bladder wall thickening is a concern vis-a-vis possibility of malignancy or just plain pyocyst itis. In view of the recurring episodes, I would consider Urology consultation since the patient farshad ht need a cystoscopy. He also has those areas of lymphadenopathy in the upper abdomen and this could be a reflection of the biliary tract issues discussed above. So, in summary, we have a question reg arding either the urinary tract or the biliary tract as the source of the patient's recurrent problem s. Previously, the evidence was more in favor of urinary tract source. He may have an underlying li efra disease which then each time he develops the urinary tract infection, there is a decompensation o f the bilirubin metabolism with hepatic inflammatory changes. We will follow up blood cultures and u rine cultures and then adjust management accordingly.
[2017-03-28] MEDS: Sodium Chloride 0.9% 1,000 ML IV SCH (00:25)
[2017-03-28] MEDS: Hydrocortisone Sod Succ/PF 100 mg/2 ml Vial IVP SCH ×2 (00:48→13:18)
[2017-03-28 04:45] LABS: ALT (SGPT) 95 U/L (8-55); AST (SGOT) 62 U/L (5-34); Albumin 2.6 g/dL (3.4-4.8); Alkaline Phosphatase 265 U/L (40-150); Anion Gap 21 mmol/L (10-20); BUN (Urea Nitrogen) 76 mg/dL (8.4-25.7); Bilirubin, Total 4.2 mg/dL (0.2-1.2); Calc. Creatinine Clearance 13 mL/min (70-130); Calcium 8.2 mg/dL (7.8-10.44); Carbon Dioxide 22 mmol/L (23-31); Chloride 101 mmol/L (98-107); Estimated GFR-MDRD 8; Globulin 4.6 g/dL (2.4-3.5); Glucose 220 mg/dL (80-115); Protein, Total 7.2 g/dL (5.8-8.1); Sodium 140 mmol/L (136-145)
[2017-03-28 05:03] LABS: Band 2 % (5-11); Hemoglobin 8.9 g/dL (14.0-18.0); Lymphocytes 11 % (21-51); MDiff Complete? YES; Mean Corpuscular HGB CONC 32.9 g/dL (32.0-36.0); Mean Corpuscular Hemoglobin 29.1 pg (27.0-31.0); Mean Corpuscular Volume 88.6 fl (80.0-94.0); Mean Platelet Volume 11.7 fL (7.4-10.4); Monocytes 4 % (0-10); Neutrophil 83 % (42-75); Nucleated RBC 1 % (0); PLT Morphology Comment Appears Adequate; Platelet Count 287 thou/uL (130-400); RBC Distribution Width 15.9 % (11.5-14.5); Red Blood Cell (RBC) Count 3.06 mill/uL (4.70-6.10); White Blood Cell (WBC) Count 13.3 thou/uL (4.8-10.8)
--- NOTE | 2017-03-28 06:26 | PRG ---
DATE OF SERVICE: 03/27/2017 SUBJECTIVE: The patient was seen and examined, seems to be showing some improvement. Noted with the following vital signs. PHYSICAL EXAMINATION: VITAL SIGNS: Afebrile with temperature 97.8, pulse 96, respiratory rate of 20, O2 sat 92% with blood pressure . HEENT: Unremarkable with moist oral mucosa. No conjunctival injection or icterus. NECK: Supple. CARDIOVASCULAR SYSTEM: First and second heart sounds were heard. RESPIRATORY SYSTEM: Showed some rales. DIGESTIVE SYSTEM: Revealed a benign abdomen with positive bowel sounds. EXTREMITIES: No peripheral edema. SKIN: No new gross rash. LYMPHATICS: No peripheral lymphadenopathy. LABORATORY INVESTIGATIONS: Showed a creatinine of 6.94. CBC showed a hemoglobin of 8.9 with a white count of 11,200. IMPRESSION: 1. End-stage renal disease, hemodialysis dependent. 2. Sepsis, seems to be showing some improvement. 3. Hemodynamic instability. The patient seems to be maintaining improved hemodynamics. 4. Hyperkalemia, which has since resolved. PLAN: 1. The patient to be placed on the scheduled hemodialysis on Tuesday, Tuesday, and Tuesday, therefor e, no dialysis today. 2. Continue renal supportive measures as well as hemodynamic support. 3. We will begin to deescalate IV fluid infusion. 4. Further management to be dependent on the clinical course.
[2017-03-28] MEDS ORDERED: Dextrose 50% Abboject 50 ML SYRINGE IVP PRN (13:07)
[2017-03-28] MEDS ORDERED: Dextrose 5% in Water 1,000 ML IV PRN (13:07)
[2017-03-28] MEDS ORDERED: HumaLOG 300 UNITS/3 ML VIAL SC PRN (13:07)
--- NOTE | 2017-03-28 13:15 | PDOC.PN ---
- Subjective Encounter Start Date: 03/28/17 Encounter Start Time: 08:10 Subjective: getting HD now -: no sob or any dyscomfort - Objective MAR Reviewed: Yes Vital Signs & Weight: Vital Signs (12 hours) Temp Pulse Resp BP Pulse Ox 03/28/17 08:00 97.7 F 65 17 95 03/28/17 07:41 97.7 F 65 17 139/75 95 03/28/17 03:18 97.5 F L 67 18 138/70 93 L Weight Weight 227 lb 6.4 oz I&O: 03/27/17 03/28/17 03/29/17 06:59 06:59 06:59 Intake Total 2640 2160 Balance 2640 2160 Result Diagrams: 03/28/17 04:03 03/28/17 04:03 Phys Exam - Physical Examination HEENT: PERRLA, moist MMs Neck: no JVD, supple Respiratory: no wheezing, no rales Cardiovascular: RRR, no significant murmur Gastrointestinal: soft, non-tender, positive bowel sounds Musculoskeletal: no edema, pulses present Neurological: non-focal, moves all 4 limbs Dx/Plan (1) Sepsis Status: Acute (2) Volume overload Code(s): E87.70 - FLUID OVERLOAD, UNSPECIFIED Status: Acute (3) Non-compliance with renal dialysis Code(s): Z91.15 - PATIENT'S NONCOMPLIANCE WITH RENAL DIALYSIS Status: Acute (4) DM type 2 (diabetes mellitus, type 2) Status: Chronic Qualifiers: Diabetes mellitus complication status: with kidney complications Diabetes mellitus complication detail: with chronic kidney disease Diabetes mellitus termite control representative insulin use: without termite control representative use Chronic kidney disease stage: on chronic dialysis Qualified Code(s): E11.22 - Type 2 diabetes mellitus with diabetic chronic kidney disease; N18.6 - End stage renal disease; N18.6 - End stage renal disease; N18.6 - End stage renal disease; N18.6 - End stage renal disease; Z99.2 - Dependence on renal dialysis; Z99.2 - Dependence on renal dialysis; Z99.2 - Dependence on renal dialysis; Z99.2 - Dependence on renal dialysis (5) Moderate malnutrition Code(s): E44.0 - MODERATE PROTEIN-CALORIE MALNUTRITION Status: Chronic (6) CAD (coronary artery disease) Code(s): I25.10 - ATHSCL HEART DISEASE OF [place] CORONARY ARTERY W/O ANG PCTRS Status: Chronic Qualifiers: Coronary Disease-Associated Artery/Lesion type: [place] artery [place] vs. transplanted heart: [place] heart Associated angina: without angina Qualified Code(s): I25.10 - Atherosclerotic heart disease of [place] coronary artery without angina pectoris (7) Dyslipidemia Code(s): E78.5 - HYPERLIPIDEMIA, UNSPECIFIED Status: Chronic (8) Transaminitis Code(s): R74.0 - NONSPEC ELEV OF LEVELS OF TRANSAMNS & LACTIC ACID DEHYDRGNSE Status: Acute (9) End stage renal failure on dialysis Code(s): N18.6 - END STAGE RENAL DISEASE; Z99.2 - DEPENDENCE ON RENAL DIALYSIS Status: Chronic - Plan is on ceftriaxone, midodrine for initial low bp -: await cs results -: had back to back HD -: tx to med floor -: reduce steroids to oral prednisone, sbp around 130's now * . Review of Systems - Medications/Allergies Allergies/Adverse Reactions: Allergies Allergy/AdvReac Type Severity Reaction Status Date / Time No Known Allergies Allergy Verified 03/04/17 15:13 Medications: Current Medications Acetaminophen (Tylenol) 650 mg PO Q6H PRN PRN Reason: Headache/Fever or Pain Last Admin: 03/26/17 21:40 Dose: 650 mg Hydrocodone Bitart/Acetaminophen ([place] 5/325) 1 tab PO Q4H PRN PRN Reason: Moderate Pain (4-6) Albuterol/Ipratropium (Duoneb) 3 ml NEB [id number] [facility] Last Admin: 03/28/17 09:49 Dose: Not Given Dextrose/Water (Dextrose 50%) 25 gm IVP PRN PRN PRN Reason: HYPOGLYCEMIA PROTOCOL Epoetin [place]ryan (Procrit) 5,000 units IVP MoWeFr [facility] Glucagon (Glucagon) 1 mg IM PRN PRN PRN Reason: HYPOGLYCEMIA PROTOCOL Heparin Sodium (Porcine) (Heparin) 5,000 units SC BID [facility] Last Admin: 03/27/17 21:21 Dose: 5,000 units Ceftriaxone Sodium 1 gm/ (Syringe 0.4 ml/ Sterile Water) 10 mls @ 120 mls/hr SLOW IVP 1100 RHETT Last Admin: 03/27/17 11:37 Dose: 10 mls Dextrose/Water (D5w) 1,000 mls @ 0 mls/hr IV INF PRN; As Directed PRN Reason: HYPOGLYCEMIA PROTOCOL Insulin Human Lispro (Humalog) 0 units SC .MODERATE SLIDING SC PRN; Protocol PRN Reason: MODERATE SLIDING SCALE Midodrine (Proamatine) 5 mg PO TID RHETT Last Admin: 03/27/17 21:20 Dose: 5 mg Ondansetron HCl (Zofran) 4 mg IVP Q6H PRN PRN Reason: Nausea/Vomiting Prednisone (Prednisone) 20 mg PO ONE [facility] Prednisone (Prednisone) 5 mg PO QAM-[facility] Sodium Chloride (Flush - Normal Saline) 10 ml IVF Q12HR RHETT Last Admin: 03/27/17 21:21 Dose: 10 ml Sodium Chloride (Flush - Normal Saline) 10 ml IVF PRN PRN PRN Reason: Saline Flush Last Admin: 03/26/17 05:59 Dose: 10 ml
[2017-03-28] MEDS: Heparin 5,000 UNITS/ML VIAL SC SCH ×2 (13:24→20:55)
[2017-03-28] MEDS: Midodrine HCl 5 MG TAB PO SCH ×3 (13:25→20:55)
[2017-03-28] MEDS: cefTRIAXone\\ROCEPHIN 1 GM, Syringe 0.4 ML in Sterile Water 9.6 ML SLOW IVP SCH (13:26)
[2017-03-28] MEDS ORDERED: predniSONE 20 MG TAB PO SCH (13:30)
[2017-03-28] MEDS: Epoetin (ESRD) 20,000 UNITS/ML IVP SCH (13:42)
--- NOTE | 2017-03-28 18:01 | PRG ---
DATE OF SERVICE: 03/28/2017 SUBJECTIVE: Carrillo Rios states he is feeling better. He was seen by my associate, Dr. Green over the weekend. OBJECTIVE: VITAL SIGNS: He is afebrile, heart rate 80, respiratory rate is 18, oximetry is 95 on room air. Blo od pressure 93/54. LUNGS: Clear. CARDIOVASCULAR: Regular rhythm. IMPRESSION: 1. Sepsis syndrome with negative cultures. 2. End-stage renal disease, on dialysis. PLAN: Continue per Nephrology. He probably can be transferred out of Intermediate Care Unit.
[2017-03-29 05:07] LABS: ALT (SGPT) 89 U/L (8-55); AST (SGOT) 69 U/L (5-34); Albumin 2.6 g/dL (3.4-4.8); Alkaline Phosphatase 288 U/L (40-150); Anion Gap 18 mmol/L (10-20); BUN (Urea Nitrogen) 49 mg/dL (8.4-25.7); Bilirubin, Total 2.7 mg/dL (0.2-1.2); Calc. Creatinine Clearance 18 mL/min (70-130); Calcium 8.4 mg/dL (7.8-10.44); Carbon Dioxide 26 mmol/L (23-31); Chloride 98 mmol/L (98-107); Estimated GFR-MDRD 11; Globulin 4.2 g/dL (2.4-3.5); Glucose 210 mg/dL (80-115); Potassium 4.1 mmol/L (3.5-5.1); Protein, Total 6.8 g/dL (5.8-8.1); Sodium 138 mmol/L (136-145)
[2017-03-29 05:52] LABS: Anisocytosis SLIGHT = 6-15 cells (100X) (0-5/hpf); Band 3 % (5-11); Hemoglobin 8.6 g/dL (14.0-18.0); Lymphocytes 15 % (21-51); MDiff Complete? YES; Mean Corpuscular HGB CONC 32.8 g/dL (32.0-36.0); Mean Corpuscular Hemoglobin 29.2 pg (27.0-31.0); Mean Corpuscular Volume 89.2 fl (80.0-94.0); Mean Platelet Volume 11.6 fL (7.4-10.4); Metamyelocyte 1 % (0-0); Monocytes 7 % (0-10); Neutrophil 73 % (42-75); Nucleated RBC 3 % (0); PLT Morphology Comment Appears Adequate; Platelet Count 315 thou/uL (130-400); RBC Distribution Width 15.8 % (11.5-14.5); Reactive Lymphocytes 1 % (0-10); Red Blood Cell (RBC) Count 2.95 mill/uL (4.70-6.10); Target Cells SLIGHT = 2-5 cells (100X) (0-1/hpf); White Blood Cell (WBC) Count 15.4 thou/uL (4.8-10.8)
--- NOTE | 2017-03-29 07:27 | PRG ---
DATE OF SERVICE: 03/28/2017 SUBJECTIVE: The patient was seen and examined today at dialysis and seems to be doing much better. PHYSICAL EXAMINATION: VITAL SIGNS: Afebrile with temperature of 98, pulse 82, respiratory rate 18, blood pressure 103/68. HEENT: Unremarkable with moist oral mucosa. No conjunctival injection or icterus. NECK: Supple. CARDIOVASCULAR: First and second heart sounds were heard. RESPIRATORY: Clear to auscultation. DIGESTIVE: Revealed a benign abdomen with positive bowel sounds. EXTREMITIES: Peripheral edema. SKIN: No new gross rash. LYMPHATICS: No peripheral lymphadenopathy. IMPRESSION: 1. Sepsis, query cause. 2. End-stage renal disease on hemodialysis. 3. . PLAN: 1. Discontinue IV fluid. 2. Continue antibiotics treatment. 3. We will begin to wean the patient off steroids as well as . 4. Further management to be dependent on the clinical course.
[2017-03-29] MEDS: predniSONE 5 MG TAB PO SCH (08:24)
[2017-03-29] MEDS: Midodrine HCl 5 MG TAB PO SCH ×3 (08:25→20:25)
[2017-03-29] MEDS: Heparin 5,000 UNITS/ML VIAL SC SCH ×2 (08:25→20:26)
[2017-03-29] MEDS: cefTRIAXone\\ROCEPHIN 1 GM, Syringe 0.4 ML in Sterile Water 9.6 ML SLOW IVP SCH (10:51)
--- NOTE | 2017-03-29 21:07 | PDOC.PN ---
- Subjective Encounter Start Date: 03/29/17 Encounter Start Time: 20:45 Subjective: f/u for ESRD on HD and suspected sepsis now resolved and no source -: identified. Tolerating HD and asymptomatic. - Objective MAR Reviewed: Yes Vital Signs & Weight: Vital Signs (12 hours) Temp Pulse Resp BP Pulse Ox 03/29/17 19:19 62 16 97 03/29/17 13:10 78 16 03/29/17 12:00 97.8 F 96 18 99/69 95 Weight Weight 227 lb 6.4 oz I&O: 03/28/17 03/29/17 03/30/17 06:59 06:59 06:59 Intake Total 2160 740 360 Output Total 500 Balance 2160 240 360 Result Diagrams: 03/29/17 03:57 03/29/17 03:57 Additional Labs: Accuchecks 03/29/17 03/29/17 03/28/17 10:57 06:18 20:48 POC Glucose 216 H 193 H 218 H EKG Reviewed by me: Yes (Tele - SR ) Phys Exam - Physical Examination Constitutional: NAD HEENT: PERRLA, oral pharynx no lesions Neck: no JVD, supple Respiratory: no wheezing, clear to auscultation bilateral Cardiovascular: RRR Gastrointestinal: soft, non-tender, no distention, positive bowel sounds L index finger with distal tip necrosis, dry gangrenous changes Musculoskeletal: no edema, pulses present Neurological: normal sensation, moves all 4 limbs Psychiatric: A&O x 3 Skin: normal turgor, cap refill <2 seconds Dx/Plan (1) End stage renal failure on dialysis Code(s): N18.6 - END STAGE RENAL DISEASE; Z99.2 - DEPENDENCE ON RENAL DIALYSIS Status: Chronic Comment: Stable, maintenance HD as outpt (2) Non-compliance with renal dialysis Code(s): Z91.15 - PATIENT'S NONCOMPLIANCE WITH RENAL DIALYSIS Status: Chronic (3) CAD (coronary artery disease) Code(s): I25.10 - ATHSCL HEART DISEASE OF [place] CORONARY ARTERY W/O ANG PCTRS Status: Chronic Qualifiers: Coronary Disease-Associated Artery/Lesion type: [place] artery [place] vs. transplanted heart: [place] heart Associated angina: without angina Qualified Code(s): I25.10 - Atherosclerotic heart disease of [place] coronary artery without angina pectoris Comment: Chronic, stable (4) DM type 2 (diabetes mellitus, type 2) Status: Chronic Qualifiers: Diabetes mellitus complication status: with kidney complications Diabetes mellitus complication detail: with chronic kidney disease Diabetes mellitus termite control technician insulin use: without termite control technician use Chronic kidney disease stage: on chronic dialysis Qualified Code(s): E11.22 - Type 2 diabetes mellitus with diabetic chronic kidney disease; N18.6 - End stage renal disease; N18.6 - End stage renal disease; N18.6 - End stage renal disease; N18.6 - End stage renal disease; Z99.2 - Dependence on renal dialysis; Z99.2 - Dependence on renal dialysis; Z99.2 - Dependence on renal dialysis; Z99.2 - Dependence on renal dialysis (5) Hyperkalemia Code(s): E87.5 - HYPERKALEMIA Status: Acute Comment: Resolved with HD - Plan geriatric social work professor, out of bed/ambulate, DVT proph w/SCDs Stable overall -: Encourage compliance with HD -: Midodrine 5mg TID -: OOB/ambulate -: Home in am * .
--- NOTE | 2017-03-30 05:43 | PRG ---
DATE OF SERVICE: 03/29/2017 SUBJECTIVE: Carrillo Rios was seen and examined today and seems to be doing better, noted with the fo darryl. OBJECTIVE: VITAL SIGNS: Afebrile. Temperature 97.8, pulse 96, respiratory rate of 18, O2 sat 95% with a blood pressure of 99/69-130/63. HEENT: Unremarkable with moist oral mucosa. No conjunctival injection or icterus. NECK: Supple. CARDIOVASCULAR SYSTEM: First and second heart sounds were heard. RESPIRATORY SYSTEM: Clear to auscultation. DIGESTIVE SYSTEM: Revealed a benign abdomen with positive bowel sounds. EXTREMITIES: No peripheral edema. SKIN: No new gross rash. LYMPHATICS: No peripheral lymphadenopathy. IMPRESSION: 1. End-stage renal disease on hemodialysis. 2. Sepsis seems to be doing much better. 3. Labile hemodynamics, which is much improved. PLAN: 1. The patient to continue with current regimen of antibiotics treatment. 2. Renal replacement therapy, hemodialysis per outpatient schedule Tuesday, Tuesday and Tuesday. 3. We will continue the midodrine for now once the patient's hemodynamics stabilizes. The patient u sed to be on midorine as an outpatient, though not very compliant with his medications. 4. Further management to be dependent on the clinical course. From the renal standpoint, the patien t is good for discharge.
[2017-03-30] MEDS: Midodrine HCl 5 MG TAB PO SCH ×2 (09:00→13:33)
[2017-03-30] MEDS: Heparin 5,000 UNITS/ML VIAL SC SCH (09:00)
[2017-03-30] MEDS: Epoetin (ESRD) 20,000 UNITS/ML IVP SCH (10:50)
[2017-03-30] MEDS: cefTRIAXone\\ROCEPHIN 1 GM, Syringe 0.4 ML in Sterile Water 9.6 ML SLOW IVP SCH (11:05)
--- NOTE | 2017-03-30 11:23 | DIS ---
DATE OF ADMISSION: 03/25/2017 DATE OF DISCHARGE: 03/30/2017 DISCHARGE DIAGNOSES: 1. End-stage renal disease with acute volume overload, resolved. 2. Noncompliance with hemodialysis. 3. Hyperkalemia secondary to end-stage renal disease, resolved. 4. Hypotension, multifactorial, improved. 5. Metabolic acidosis secondary to end-stage renal disease, improved. 6. Acute bronchitis. 7. Tobacco abuse. 8. Metabolic encephalopathy, resolved. 9. Question of systemic inflammatory response syndrome, resolved. 10. Chronic normocytic anemia secondary to chronic kidney disease. CONSULTATIONS: Dr. Green and Dr. Bennett with Pulmonology Service. Dr. Manjit Gomez with Nephro logy Service. Dr. Eliezer Baron with Infectious Disease service. PERTINENT LABORATORY DATA AND X-RAY FINDINGS: Potassium ranged between 4.0-6.4. Creatinine ranged b etween 6.06-13.52. AST ranged between 62 to 286, ALT ranged between 89-197, total bilirubin ranged b etween 2.7-6.8, phosphorus 4.0. Lactic acid level 1.3. BNP 17.7. CBC showed a white blood cell cou nt ranging between 11.2-15.4, hemoglobin ranged between 8.6-9.4. Hepatitis B surface antigen nonreac tive, 03/25/2017. Portable chest x-ray dated 03/25/2017 showed no acute cardiopulmonary process. Le ft internal jugular central venous catheter removed. A 2D transthoracic echocardiogram dated 017 showed ejection fraction of 45%-50%. Mild left atrial enlargement. Mild mitral and tricuspid va lve regurgitation. Abdominal ultrasound dated 03/26/2017 showed post-cholecystectomy changes. Mild hepatomegaly. HOSPITAL COURSE: Patient was initially admitted after presenting with cough, fever, fatigue and acut e volume overload in the context of end-stage renal disease on current hemodialysis. Patient with no ncompliance with outpatient hemodialysis, presenting with volume overload with hepatic congestion and transaminitis and concern for acute bronchitis versus systemic inflammatory response syndrome. The patient was placed on broad spectrum IV antibiotic therapy and underwent hemodialysis throughout the hospital course with excellent volume removal and symptomatic improvement. The patient was noted wit h hypotension, treated with IV fluids and adjustment to current medication regimen with the addition midodrine and hydrocortisone. The patient's overall blood pressure trend improved with adjustment to his dialysis sessions in addition to hydrocortisone transitioning to prednisone therapy and continua tion of midodrine. No specific culture results were available for the patient during the hospital co urse and antibiotic therapy was continued empirically with Rocephin 1 gram daily. No specific focal source of infectious process was identified, and patient continued to clinically improve with conserv ative management. Overall, the patient remained clinically stable for the remainder of hospital cour se and ready for discharge on 03/30/2017. DISCHARGE MEDICATIONS: 1. Midodrine 5 mg 1 tab p.o. t.i.d. 2. Prednisone 5 mg 1 tab p.o. daily x7 days. FOLLOWUP: The patient will follow up with Dr. Manjit Gomez with hemodialysis Tuesday, , and Tuesday. CONDITION ON DISCHARGE: Fair. ACTIVITY: ad tanna. DIET: Renal and heart healthy. CODE STATUS: FULL. DISPOSITION: Home, 03/30/2017. Total time preparing and coordinating discharge was 33 minutes.
[2017-03-30 13:24] VITALS: BP 112/62; TEMP 99
[2017-03-30] MEDS: predniSONE 5 MG TAB PO SCH (13:33)
[2017-03-31] MEDS ORDERED: Heparin 10,000 UNITS/ 10 ML VIAL ONE (11:02)
--- NOTE | 2017-04-05 13:43 | PQF ---
RADHA ROY ALLEN [id number] CLINICAL DOCUMENTATION CLARIFICATION FORM: POST DISCHARGE Addendum to original discharge summary date: ____ Late entry note date: __ DATE: 03/25/17 ATTN: Dr. Tesfaye Please exercise your independent, professional judgment in responding to the clarification form. Clinical indicators are provided on the bottom of this form for your review Please check appropriate box(s): [ XX ] Sepsis due to: (Pna, UTI, gangrenous gall bladder, etc.) ____SOURCE UNKNOWN Due to: [ ] Device (please specify) [ ] Implant [ ] Graft [ ] Infusion [ ] SIRS due to non-infectious process (please specify etiology) [ X ] with organ dysfunction [ ] without organ dysfunction [ ] Severe sepsis with acute organ dysfunction of: (Examples: respiratory failure, encephalopathy, acute kidney failure, other) [ ] Localized infection without sepsis [ ] Other diagnosis [ ] Unable to determine In addition, please specify: Present on Admission (POA): [X ] Yes [ ] No [ ] Unable to determine CLINICAL INDICATORS - SIGNS / SYMPTOMS / LABS: encephalopathy Metabolic acidosis Lactic Acid >2mmol/L, Increase BUN/Fitting Room Attendant, decrease GFR Dr. Gomez documented on 03/26/17 that patient had sepsis with hemodynamic instability. On 03/28,, and he continued to document sepsis. Dr. Bennett and Dr. Green documented "sepsis with negative culters" on 03/28 and 03/27 respectively. But the DC summary by Dr. Forrester only documented "question of SIRS, resolved." RISK FACTORS Infection/Bacteremia Diabetes Advancing Age MTDD
--- NOTE | 2017-04-05 13:48 | PQF ---
[employer] Assembly Machine Tender Crystal Reports Winform ViewerAUSPRESTONRADHA EUGENIOLICO [id number] CU- [id number] CLINICAL DOCUMENTATION CLARIFICATION FORM: POST DISCHARGE Addendum to original discharge summary date: ____ Late entry note date: __ DATE: 04/05/17 ATTN: Dr. Tesfaye Please exercise your independent, professional judgment in responding to the clarification form. Clinical indicators are provided on the bottom of this form for your review Please check appropriate box(s): [ ] Associated Diagnosis: [ ] Other diagnosis [ x ] Unable to determine In addition, please specify: Present on Admission (POA): [ ] Yes [ ] No [ ] Unable to determine CLINICAL INDICATORS - SIGNS / SYMPTOMS/ LABS are present in the medical record: Lab Results: Dr. Baron states in his 03/27 regional engagement consultant note, "patient does have evidence of cholestasis in lab results." Documentation further down states "there is no evidence of extrahepatic biliary tract obstruction." RISK FACTORS TREATMENT Series of electrolyte labs Electrolyte replacement therapy (specify) IVF (specify) (This form is maintained as a part of the permanent medical record) 2014 [employer]. All Rights Reserved Eugenio Godwin, CARISSA, CCS [email or web address] [phone] MTDD
--- NOTE | 2017-04-09 16:00 | EKG ---
Test Reason : Blood Pressure : / mmHG Vent. Rate : 112 BPM Atrial Rate : 112 BPM P-R Int : 134 ms QRS Dur : 084 ms QT Int : 304 ms P-R-T Axes : 065 018 032 degrees QTc Int : 414 ms Sinus tachycardia Septal infarct , age undetermined Abnormal ECG Confirmed by LISS JOY, PERRY Atkinson ([id number]), business editor VINCENT OJEDA ([id number]) on 04/09/2017 3:59:57 PM Referred By: Confirmed By:PERRY LEIJA MD
--- NOTE | 2017-04-14 09:03 | PQF ---
RADHA ROYGRANT DO [id number] IMCU- B06 [id number] CLINICAL DOCUMENTATION CLARIFICATION FORM: POST DISCHARGE Addendum to original discharge summary date: ____ Late entry note date: __ DATE: 04/14/2017 ATTN: Dr. Forrester Please exercise your independent, professional judgment in responding to the clarification form. Clinical indicators are provided on the bottom of this form for your review Please check appropriate box(s): [ ] Associated Diagnosis: [ ] Other diagnosis [ ] Unable to determine In addition, please specify: Present on Admission (POA): [ ] Yes [ ] No [ ] Unable to determine CLINICAL INDICATORS - SIGNS / SYMPTOMS/ LABS are present in the medical record: Dr. Baron states in his 04/03/17 Director Dance note, "patient does have evidence of cholestasis in lab results." Documentation further down states "there is no evidence of extrahepatic biliary track obstruction" RISK FACTORS TREATMENT Series of electrolyte labs Electrolyte replacement therapy (specify) IVF (specify) (This form is maintained as a part of the permanent medical record) 2014 [employer]. All Rights Reserved CARISSA Carrillo, CCS [email or web address] [phone] Old query unanswered. MTDD
== END 2017-03-30 15:28 | disposition home or self-care (01) | DRG 871 ==
LOC: ERS 15:24 → IMCU/EMU 18:44 → 2NO 03-29 15:03
PROVIDERS: ADMIT Internal Medicine Addiction Medicine; ATTEND Internal Medicine Addiction Medicine
PROC: 5A1D70Z Performance of Urinary Filtration, Intermittent, Less than 6 Hours Per Day (ICD-10-PCS; principal; 2017-03-25)
DX: A41.9 Sepsis, unspecified organism (principal); N18.6 End stage renal disease; G93.41 Metabolic encephalopathy; E87.2 Acidosis; E44.0 Moderate protein-calorie malnutrition; N17.9 Acute kidney failure, unspecified; I12.0 Hypertensive chronic kidney disease with stage 5 chronic kidney disease or end stage renal disease; E11.22 Type 2 diabetes mellitus with diabetic chronic kidney disease; Z99.2 Dependence on renal dialysis; Z91.15 Patient's noncompliance with renal dialysis; E87.5 Hyperkalemia; D63.1 Anemia in chronic kidney disease; F17.210 Nicotine dependence, cigarettes, uncomplicated; I25.10 Atherosclerotic heart disease of native coronary artery without angina pectoris; E78.5 Hyperlipidemia, unspecified; E21.3 Hyperparathyroidism, unspecified; Z86.73 Personal history of transient ischemic attack (TIA), and cerebral infarction without residual deficits; J20.9 Acute bronchitis, unspecified; F10.10 Alcohol abuse, uncomplicated
CPT/HCPCS: 36415; 36416; 71010; 76705; 80053; 80069; 82550; 82553; 83605; 83880; 84484; 85025; 87340; 90935; 93005; 93306; 94640; 96361; 96365; 99292; 99406; A4216; G0257; J0696; J1644; J1720; J2543; J3370; J7050; J7620; Q4081

== ENCOUNTER 2018-11-24 09:57 | Inpatient (IN) | payer MEDICARE, MEDICAID ==
[2018-11-24 10:21] LABS: #Lymphocytes 1.1 thou/uL (1.20-3.40); #Monocytes 1.2 thou/uL (0.11-0.59); #Neutrophils 10.9 thou/uL (1.40-6.50); %Basophils 0.2 % (0.0-1.0); %Eosinophils 0.3 % (0.0-10.0); %Lymphocytes 8.2 % (21.0-51.0); %Monocytes 8.8 % (0.0-10.0); %Neutrophils 82.5 % (42.0-75.0); Hemoglobin 12.9 g/dL (14.0-18.0); Mean Corpuscular HGB CONC 33.7 g/dL (32.0-36.0); Mean Corpuscular Hemoglobin 30.4 pg (27.0-31.0); Mean Corpuscular Volume 90.1 fL (78.0-98.0); Mean Platelet Volume 8.9 fL (7.4-10.4); Platelet Count 193 thou/uL (130-400); RBC Distribution Width 15.9 % (11.5-14.5); Red Blood Cell (RBC) Count 4.24 mill/uL (4.70-6.10); White Blood Cell (WBC) Count 13.2 thou/uL (4.8-10.8)
[2018-11-24] MEDS ORDERED: Piperacillin/Tazobactam 4.5 GM VIAL ONE (10:37)
--- NOTE | 2018-11-24 10:37 | RAD ---
CHEST ONE VIEW: History: Cough, fever. Comparison: 03-25-17 FINDINGS: Heart size is within normal limits. There are arthrosclerotic changes of the aorta. The lungs are [place] ar of infiltrative process. IMPRESSION: No active intrathoracic disease. POS: OFF
[2018-11-24 10:41] LABS: ALT (SGPT) 252 U/L (8-55); AST (SGOT) 270 U/L (5-34); Albumin 3.8 g/dL (3.4-4.8); Alkaline Phosphatase 171 U/L (40-150); Anion Gap 16 mmol/L (10-20); BUN (Urea Nitrogen) 37 mg/dL (8.4-25.7); Bilirubin, Total 1.2 mg/dL (0.2-1.2); Calc. Creatinine Clearance 0 mL/min (70-130); Calcium 10.1 mg/dL (7.8-10.44); Carbon Dioxide 24 mmol/L (23-31); Chloride 102 mmol/L (98-107); Estimated GFR-MDRD 7; Globulin 3.9 g/dL (2.4-3.5); Glucose 108 mg/dL (80-115); Potassium 4.8 mmol/L (3.5-5.1); Protein, Total 7.7 g/dL (5.8-8.1); Sodium 137 mmol/L (136-145)
[2018-11-24] MEDS ORDERED: Ondansetron PF 4 MG/2 ML Vial ONE (10:53)
[2018-11-24] MEDS ORDERED: diphenhydrAMINE 50 MG/ML VIAL ONE (11:26)
--- NOTE | 2018-11-24 13:28 | HP ---
PRIMARY CARE PHYSICIAN: Currently does not have, none. ORGANIZATIONAL PSYCHOLOGIST: Manjit Gomez MD CHIEF COMPLAINT: Feeling extremely weak. HISTORY OF PRESENT ILLNESS: Mr. Rios is a very pleasant 63-year-old gentleman, who has a history of hypertension as well as end-stage renal disease, on hemodialysis. He was in his usual state of health until approximately 2 days prior to admission. He says he had gone to dialysis and was feeling okay when he went to dialysis, but then on the way home, when he was on the bus, he started to feel weak and then, he says that when he got off the bus, he had to walk at least three blocks in the heat in order to get home. The following day, he says he is pretty much laid in the bed all day long. He did not eat as well. He did not have much of an appetite. He says that the following morning, he woke up with pain on his left side, was still feeling very weak and called an ambulance to bring him to the hospital. He denies having any fevers or chills. No nausea, vomiting, or diarrhea. He did say he was a bit confused because he thought it was Tuesday and not Tuesday and when he got to the ER, he does admit to having somewhat of a cough, which has been nonproductive and then started having episodes of nausea and vomiting. In the ER, he was found to be hypotensive. He had an elevated white blood count cell count at 13.2, and also had a fever with a temperature reported at 101.1, and for this reason, he is being admitted for further treatment. REVIEW OF SYSTEMS: CONSTITUTIONAL: The patient had no subjective fever or chills at home. No night sweats. No weight loss, but he does admit to having poor appetite. HEENT: He denies any headaches. He did feel a little bit dizzy and weak. No sore throat, rhinorrhea, or neck pain. No adenopathy. PULMONARY: No hemoptysis, but he had a cough, but no congestion. No wheezing. CARDIOVASCULAR: He denies any chest pain. No shortness of breath. No PND. No orthopnea. GASTROINTESTINAL: As in history of present illness. GENITOURINARY: He says he does still make urine. He denies any tea-colored urine or dark urine. No polyuria and no frequency. No dysuria. MUSCULOSKELETAL: He denies any muscle pains, weakness, or joint pains. NEUROLOGIC: No focal weakness or numbness. No seizures. PSYCHIATRIC: No symptoms of anxiety or depression. SKIN AND INTEGUMENT: No skin changes. No rash. PAST MEDICAL HISTORY: Significant for end-stage renal disease on hemodialysis, hypertension, coronary artery disease, hyperparathyroidism, and history of previous cerebrovascular accident. PAST SURGICAL HISTORY: He has had an AV fistula and a kidney resection. ALLERGIES: NO KNOWN DRUG ALLERGIES. SOCIAL HISTORY: He is . He says he lives in a one bedroom house. He has no children. He has a provider that comes in periodically. He has not designated a medical power of director hospice operations, but he says his brother, Dc Rios would be the one he would want to make decisions for him. He is a full code. FAMILY HISTORY: Significant for diabetes in his sister and brother. CURRENT MEDICATIONS: Include Sensipar as well as what sounds like a possibly Renvela. PHYSICAL EXAMINATION: GENERAL: He is alert and oriented to person, place, and time. He is well developed and well nourished. He appears to be in no acute distress other than having some episodes of vomiting. VITAL SIGNS: The blood pressure was 103/78, heart rate 96, respiratory rate of 16, and temperature was 101.1. HEENT: Pupils are equal, round, and reactive to light. Extraocular muscles are intact. His sclerae anicteric. Throat, there is no erythema. No exudates. NECK: No adenopathy. No bruits. LUNGS: Clear to auscultation. There was no wheezing, no rales, no rhonchi. CARDIOVASCULAR: He has a normal S1 and S2. There was no S3 or S4. No murmurs, clicks, or rubs. ABDOMEN: Soft. He had some mid epigastric tenderness, but this was not able to be reproduced during the exam. There was no rebound. No guarding. No organomegaly. EXTREMITIES: There is no clubbing or cyanosis. No edema. NEUROLOGIC: Muscle strength is 5/5 in both his upper and lower extremities. SKIN AND INTEGUMENT: No skin changes. No rash. LAB RESULTS: White blood cell count is 13.2, hemoglobin is 12.9, hematocrit is 38.2, and platelet count is 193. Sodium 137, potassium 4.8, chloride is 103, CO2 is 24, BUN of 37, creatinine 9.78, glucose is 108, AST is 270, ALT is 252, and alkaline phosphatase is 171. ASSESSMENT AND PLAN: 1. This is a 63-year-old gentleman, who presents to the emergency room with generalized weakness, fever, elevated white count as well as elevated liver function test. He has met sepsis criteria. The etiology of which is unknown. However, it is noted that his liver function tests were elevated. This could be due to simply to passive congestion or could represent some type of biliary disease with the elevated alkaline phosphatase. He also has had a cough and could have an early pneumonia. He also is a dialysis patient and sepsis from skin organisms such as stress and Staph due to the numerous venipunctures is also a possibility. His fistula does not appear to be inflamed or infected. Nonetheless, he will be admitted for sepsis of unknown origin. Started on broad-spectrum IV antibiotics. We will obtain an abdominal ultrasound to assess his gallbladder and biliary tree. 2. End-stage renal disease on hemodialysis. His assault amphibious vehicle officer will be consulted for maintenance hemodialysis and will need to restart and reconcile his medications for renal replacement. 3. Hypertension. Currently, the patient says he is not on any medications for blood pressure. I will place him on p.r.n. hydralazine and further recommendations to follow. He will also be placed on deep venous thrombosis and gastrointestinal prophylaxis. Job ID: [id number]
[2018-11-24] MEDS ORDERED: hydrALAZINE 20 MG/ML VIAL SLOW IVP PRN (14:39)
[2018-11-24] MEDS ORDERED: diphenhydrAMINE 25 MG CAP PO PRN (14:39)
[2018-11-24] MEDS ORDERED: Ondansetron ODT 4 MG TAB PO PRN (14:39)
[2018-11-24] MEDS ORDERED: Ondansetron PF 4 MG/2 ML Vial IVP PRN (14:39)
[2018-11-24] MEDS ORDERED: HYDROcodone/Acetaminophen 5/325 mg Tablet PO PRN (14:39)
[2018-11-24] MEDS: Heparin 5,000 UNITS/ML VIAL SC SCH ×2 (15:20→20:55)
[2018-11-24 15:55] LABS: HBSAg Index 0.49 S/CO (0-0.99); Hep A IgM AB Non-Reactive (NonReactive); Hep B Surf Ag Non-Reactive S/CO (NonReactive); Hep C IgG Ab Non-Reactive (NonReactive); Hep C Index 0.08 S/CO (0-0.79)
[2018-11-24 15:57] LABS: HBSAg Index 0.34 S/CO (0-0.99); Hep B Surf Ag Non-Reactive S/CO (NonReactive)
[2018-11-24 16:43] VITALS: BMI 26.1
[2018-11-24 16:57] LABS: HBCM Index 0.84 S/CO (0-0.79); Hepatitis B Core IgM Abs Equivocal (NonReactive)
[2018-11-24] MEDS ORDERED: HOLD VANCOMYCIN FOR LEVEL >20 FS SCH (17:15)
[2018-11-24] MEDS ORDERED: Vancomycin HCl 1 GM in Premix Bag 1 BAG IVPB SCH (17:15)
[2018-11-24] MEDS ORDERED: Vancomycin HCl 1.5 GM in Sodium Chloride 0.9% 250 ML 300 ML IVPB SCH (17:15)
[2018-11-24] MEDS ORDERED: Vancomycin HCl 750 MG in Sodium Chloride 0.9% 250 ML 250 ML IVPB SCH (17:15)
[2018-11-24] MEDS ORDERED: Vancomycin HCl 1.25 GM in Sodium Chloride 0.9% 250 ML 250 ML IVPB SCH (17:15)
[2018-11-24] MEDS: Piperacillin/Tazobactam 2.25 GM in Sodium Chloride 0.9% 100 ML IVPB SCH (18:59)
[2018-11-24] MEDS: Acetaminophen 325 MG TAB PO PRN (20:55)
--- NOTE | 2018-11-25 00:22 | PDOC.EVN ---
Event Note - Event Note Event Note: One of two blood cultures positive for Gram negative best. Continue current Rx.
[2018-11-25] MEDS: Piperacillin/Tazobactam 2.25 GM in Sodium Chloride 0.9% 100 ML IVPB SCH ×3 (01:28→17:37)
--- NOTE | 2018-11-25 07:28 | ULT ---
COMPLETE ABDOMEN ULTRASOUND: INDICATIONS: Elevated LFTs with a history of chronic renal insufficiency, currently on dialysis. FINDINGS: No focal hepatic lesion is evident. The gallbladder is surgically absent. The common bile duct zoe ures 9 mm. Both kidneys are atrophic with cortical thinning. The right kidney measures 11.5 cm in length, and t he left measures 7 cm. There is a 2 cm cyst involving the superior pole of the right kidney. There is a 7 mm cyst involving the superior pole of the left kidney. The spleen measures 6.8 cm. The visu alized aspects of the aorta, IVC, and pancreas are within normal limits. Appropriate flow is seen in the main portal vein. IMPRESSION: 1. No acute sonographic abnormality seen within the abdomen. 2. Atrophic kidneys with some renal cortical thinning bilaterally. 3. Bilateral renal cysts. POS: BH
[2018-11-25 09:50] LABS: Anion Gap 17 mmol/L (10-20); BUN (Urea Nitrogen) 28 mg/dL (8.4-25.7); Calc. Creatinine Clearance 14 mL/min (70-130); Calcium 9.7 mg/dL (7.8-10.44); Carbon Dioxide 26 mmol/L (23-31); Chloride 100 mmol/L (98-107); Estimated GFR-MDRD 9; Glucose 95 mg/dL (80-115); Potassium 4.6 mmol/L (3.5-5.1); Sodium 138 mmol/L (136-145)
[2018-11-25] MEDS: Heparin 5,000 UNITS/ML VIAL SC SCH ×3 (09:51→19:56)
[2018-11-25 09:53] LABS: Band 11 % (5-11); Eosinophils 3 % (0-10); Hemoglobin 11.3 g/dL (14.0-18.0); Lymphocytes 9 % (21-51); MDiff Complete? YES; Mean Corpuscular HGB CONC 33.5 g/dL (32.0-36.0); Mean Corpuscular Hemoglobin 30.9 pg (27.0-31.0); Mean Corpuscular Volume 92.3 fL (78.0-98.0); Mean Platelet Volume 9.4 fL (7.4-10.4); Metamyelocyte 1 % (0-0); Monocytes 4 % (0-10); Neutrophil 71 % (42-75); Platelet Count 192 thou/uL (130-400); RBC Distribution Width 15.8 % (11.5-14.5); Red Blood Cell (RBC) Count 3.67 mill/uL (4.70-6.10); Vacuoles SLIGHT; White Blood Cell (WBC) Count 10.9 thou/uL (4.8-10.8)
[2018-11-25 10:11] LABS: Bacteria/HPF 1+ HPF (None Seen); RBC/HPF None Seen HPF (0-3); WBC/HPF 21-50 HPF (0-3)
[2018-11-25] MEDS ORDERED: Vancomycin HCl 1 GM in Premix Bag 1 BAG IVPB SCH (12:00)
--- NOTE | 2018-11-25 18:00 | PDOC.HOSPP ---
- Subjective Encounter Date: 11/25/18 Encounter Time: 11:00 Subjective: Mr. Rios was seen today in follow-up of sepsis. He does not have any complaints. The left flank pain he experienced has resolved. - Objective Vital Signs & Weight: Vital Signs (12 hours) Temp Pulse Resp BP Pulse Ox 11/25/18 16:30 98.5 F 96 18 122/66 95 11/25/18 11:52 98.6 F 88 18 126/77 98 11/25/18 07:33 98.8 F 91 16 115/61 96 Weight Weight 220 lb 0.341 oz Result Diagrams: 11/25/18 09:23 11/25/18 09:23 Additional Labs: Accuchecks 11/25/18 11/25/18 16:51 10:59 POC Glucose 118 H 94 ROS - Medication Medications: Active Medications Generic Name Dose Route Start Last Admin Trade Name Freq PRN Reason Stop Dose Admin Acetaminophen 650 mg 11/24/18 14:39 11/24/18 20:55 Tylenol PO 650 mg Q4H PRN Administration Headache/Fever/Mild Pain (1-3) Heparin Sodium (Porcine) 5,000 units 11/24/18 15:00 11/25/18 16:48 Heparin SC Not Given TID RHETT Piperacillin Sod/Tazobactam 100 mls @ 200 mls/hr 11/24/18 18:00 11/25/18 17: 37 Sod 2.25 gm/ Sodium Chloride IVPB 100 mls Q8H RHETT Administration - Exam Eye: PERRL Heart: RRR, no murmur, no gallops, no rubs, normal peripheral pulses Respiratory: CTAB, no wheezes, no rales, no ronchi, normal chest expansion, no tachypnea, normal percussion Gastrointestinal: soft, non-tender, non-distended, normal bowel sounds, no palpable masses, no hepatomegaly, no splenomegaly, no guarding, no rigidity Extremities: no cyanosis, no clubbing, no edema Hosp A/P (1) Sepsis Status: Acute (2) DM type 2 (diabetes mellitus, type 2) Status: Chronic Qualifiers: (3) End stage renal failure on dialysis Code(s): N18.6 - END STAGE RENAL DISEASE; Z99.2 - DEPENDENCE ON RENAL DIALYSIS Status: Chronic - Plan * Sepsis- 1 of 2 blood cultures is growing E. coli. Abdominal ultrasound is essentially negative- suspect this is due to a urine source * Will continue Zosyn pending sensitivities * ESRD- stable * DM- blood glucose is stable
[2018-11-25] MEDS: Acetaminophen 325 MG TAB PO PRN (19:56)
[2018-11-26] MEDS: Piperacillin/Tazobactam 2.25 GM in Sodium Chloride 0.9% 100 ML IVPB SCH ×2 (01:38→09:13)
[2018-11-26 07:11] VITALS: BP 123/76; TEMP 99
[2018-11-26] MEDS ORDERED: Sodium Chloride 0.9% 0 ML ONE (07:49)
[2018-11-26] MEDS ORDERED: Sodium Chloride 0.9% 10 ML ONE (07:49)
[2018-11-26] MEDS: Heparin 5,000 UNITS/ML VIAL SC SCH (09:13)
--- NOTE | 2018-11-26 18:47 | PRG ---
DATE OF SERVICE: 11/26/2018 SUBJECTIVE: The patient was seen and examined, noted with the following vital signs. OBJECTIVE: VITAL SIGNS: Afebrile. Temperature 98.5, pulse 96, respiratory rate of 18, blood pressure of 122/66, and O2 saturations are 95%. HEENT: Unremarkable. CARDIOVASCULAR SYSTEM: First and second heart sounds were heard. RESPIRATORY SYSTEM: Clear to auscultation. DIGESTIVE SYSTEM: Revealed a benign abdomen. EXTREMITIES: No peripheral edema. SKIN: No new gross rash. LYMPHATICS: No peripheral lymphadenopathy. LABORATORY INVESTIGATION: Significant for blood cultures E coli. IMPRESSION: 1. Sepsis possibly of urinary origin. 2. End-stage renal disease, on hemodialysis. 3. Escherichia coli bacteremia. PLAN: 1. The patient to continue dialysis on Tuesday, Tuesday, and Tuesday. The patient by tomorrow, the patient will undergo dialysis. 2. Further management will be dependent on the clinical course. Job ID: [id number]
--- NOTE | 2018-11-26 18:57 | CON ---
DATE OF CONSULTATION: REQUESTING PHYSICIAN: Dr. Roca, the ER physician. REASON FOR CONSULTATION: For renal replacement therapy (hemodialysis). IMPRESSION: 1. End-stage renal disease, on hemodialysis Tuesday, Tuesday and Tuesday, due for dialysis today. 2. Sepsis, query source, possibly biliary origin. 3. Labile hemodynamics. PLAN: 1. The patient to be dialyzed today in accordance with his Tuesday, Tuesday, and Tuesday schedule dialysis with no ultrafiltration as the patient's hemodynamics are very labile. 2. Further management will be dependent on the clinical course as well as further recommendations from the Primary Service. HISTORY OF PRESENT ILLNESS: A 63-year-old gentleman with end-stage renal disease, hemodialysis dependent on Tuesday, Tuesday, Tuesday, who presented here with weakness, abdominal discomfort, noted with a blood pressure that runs in the 70s to the 80s. The need for maintenance dialysis necessitated this Renal consultation. The patient had received about 500 bolus of IV fluid in the ER with improvement in hemodynamics. PAST MEDICAL HISTORY: Significant for; 1. End-stage renal disease, on hemodialysis. 2. Coronary artery disease. 3. Hyperparathyroidism. ALLERGIES: NO KNOWN DRUG ALLERGIES. SOCIAL HISTORY: No alcohol. No tobacco. No illicit drug use. REVIEW OF SYSTEMS: As documented in the body of the history. FAMILY HISTORY: Not significantly related to present illness. PHYSICAL EXAMINATION: GENERAL: The patient was found to be ill looking, noted with the following vital signs. VITAL SIGNS: Blood pressure of about 107/58, respiratory rate of 18, and O2 saturations are 94%. HEENT: Unremarkable. CARDIOVASCULAR SYSTEM: First and second heart sounds were heard. RESPIRATORY SYSTEM: Clear to auscultation. DIGESTIVE SYSTEM: A benign abdomen with positive bowel sounds. EXTREMITIES: No peripheral edema. SKIN: No new gross rash. LYMPHATICS: No peripheral lymphadenopathy. SUMMARY: A 63-year-old gentleman with end-stage renal disease, hemodialysis dependent, who presented here with fever and low blood pressure as well as abdominal discomfort. Thank you for this consultation. We will follow with you. Job ID: [id number]
--- NOTE | 2018-11-27 02:05 | DIS ---
DATE OF ADMISSION: 11/24/2018 DATE OF DISCHARGE: 11/26/2018 REASON FOR HOSPITALIZATION: Generalized weakness. SIGNIFICANT FINDINGS: The patient was found to be bacteremic with blood culture growing E coli. PROCEDURES PERFORMED AND TREATMENTS RENDERED: The patient was placed on broad-spectrum antibiotics and then later deescalated to culture and sensitivity when it was available. CONDITION ON DISCHARGE: Stable. SPECIFIC INSTRUCTIONS FOR THE PATIENT/FAMILY: 1. The patient is recommended to complete a full course of oral antibiotics as directed. 2. The patient is recommended to follow up with hemodialysis at his normal Tuesday, Tuesday, and Tuesday routine. 3. The patient is recommended to follow up with primary care physician in the next 5 to 7 days. 4. The patient is recommended to return to acute care hospital immediately if signs or symptoms return, worsen, or any other new symptoms occur. HISTORY OF PRESENT ILLNESS: Mr. Rios is a pleasant 63-year-old gentleman with past medical history ofend-stage renal disease on hemodialysis, hypertension, coronary artery disease, and CVA, who presents with generalized weakness, fever, elevated WBC count, and was diagnosed with sepsis. The patient had cultures taken and was found to be growing E coli which was pansensitive. The patient recommended transition to oral antibiotic with Levaquin. The patient's WBC count normalized to 10.9 on 11/25/2018. The patient is afebrile since admission. The patient is breathing well and saturating 95% on room air. The patient was explicitly informed that he must take a full course of oral antibiotics for resolution of infection. The patient was explicitly informed that if any fever returns, he is to return to acute care hospital immediately. The patient was explicitly informed that if any new symptoms or symptoms return , he is to return to acute care hospital immediately for re-evaluation. The patient states that he has an appointment for his normal hemodialysis session tomorrow and he will see his electrician supervisor then. Greater than 37 minutes spent coordinating care and discharge process. Job ID: [id number] [facility]
--- NOTE | 2018-11-27 08:06 | CON ---
DATE OF CONSULTATION: REQUESTING PHYSICIANS: ER physician and Dr. Roca. REASON FOR CONSULTATION: Need for maintenance hemodialysis. IMPRESSION: 1. End-stage renal disease, hemodialysis dependent, Tuesday, Tuesday and Tuesday, due for dialysis today. 2. Hypotension, possibly in the context of intravascular depletion/sepsis though this patient normally runs low, but not as low as the 70s and 80s as documented in the ER. PLAN: 1. Now that the patient's hemodynamics have stabilized, we go ahead and have the patient to undergo dialysis without any ultrafiltration. If the hemodynamics become much more dialysis. 2. Further management will be dependent on the clinical course. HISTORY OF PRESENT ILLNESS: A 63-year-old gentleman with end-stage renal disease, on hemodialysis, Tuesday, Tuesday, Tuesday, who presented here feeling weak with nausea and vomiting, cough, nonproductive and left upper abdominal pain. The patient in the past has had sepsis in the context of . The patient in the ER was noted with blood pressure systolic in the 70s to 80s hemodynamics. The need for maintenance hemodialysis necessitated this consultation. PAST MEDICAL HISTORY: Significant for 1. End-stage renal disease, on hemodialysis, Tuesday, Tuesday, and Tuesday. 2. Coronary artery disease. 3. Hyperparathyroidism. 4. Remote history of cerebrovascular accident. ALLERGIES: NO KNOWN DRUG ALLERGIES. SOCIAL HISTORY: Denies alcohol, tobacco, or illicit drug use. FAMILY HISTORY: Not significantly related to present illness. REVIEW OF SYSTEMS: As documented in the body of the history. All the other systems were reviewed and found not to be significantly related to presenting illness. LABORATORY INVESTIGATION: Showed a white count of 13,200. Chemistry showed a creatinine of 9.78, BUN of 37, AST of 270 with ALT 252, alkaline phosphatase 171. PHYSICAL EXAMINATION: VITAL SIGNS: The patient was found to be ill looking with a blood pressure that hovers between 106-116 systolic over 60, respiratory rate of 18, O2 saturation of 98%. HEENT: Unremarkable. Moist oral mucosa. No conjunctival injection or icterus. NECK: Supple. CARDIOVASCULAR: First and second heart sounds were heard. RESPIRATORY: Clear to auscultation. DIGESTIVE SYSTEM: Revealed a mild tenderness on palpation of the left upper abdomen with positive bowel sounds. EXTREMITIES: No peripheral edema. SKIN: No new gross rash. LYMPHATICS: No peripheral lymphadenopathy. SUMMARY: A 63-year-old gentleman with end-stage renal disease, hemodialysis dependent, Tuesday, Tuesday, Tuesday, who presented here, noted to be hypotensive with abdominal discomfort, nausea and vomiting. Thank you for this consultation. We will follow with you. Job ID: [id number]
== END 2018-11-26 11:08 | disposition home or self-care (01) | DRG 871 ==
LOC: ERS 09:57 → ERHOLD 11:25 → 2NO 14:30
PROVIDERS: ADMIT Internal Medicine; ATTEND Internal Medicine
PROC: 5A1D70Z Performance of Urinary Filtration, Intermittent, Less than 6 Hours Per Day (ICD-10-PCS; principal; 2018-11-24)
DX: A41.51 Sepsis due to Escherichia coli [E. coli] (principal); N18.6 End stage renal disease; I12.0 Hypertensive chronic kidney disease with stage 5 chronic kidney disease or end stage renal disease; E21.3 Hyperparathyroidism, unspecified; F17.200 Nicotine dependence, unspecified, uncomplicated; I25.10 Atherosclerotic heart disease of native coronary artery without angina pectoris; I95.9 Hypotension, unspecified; E11.22 Type 2 diabetes mellitus with diabetic chronic kidney disease; Z99.2 Dependence on renal dialysis; Z86.73 Personal history of transient ischemic attack (TIA), and cerebral infarction without residual deficits
CPT/HCPCS: 36415; 36416; 71045; 76700; 80048; 80053; 80074; 81015; 83605; 85025; 87040; 87077; 87149; 87186; 87340; 90935; 93005; 96365; 96366; 96367; 96375; G0257; J1200; J1644; J2405; J2543; J3370; J3490

== ENCOUNTER 2020-03-10 13:32 | Observation (INO) | payer MEDICARE, MEDICAID ==
--- NOTE | 2020-03-10 15:21 | RAD ---
PORTABLE CHEST: Date: 03/10/2020 INDICATION: Mental status change. COMPARISON: 11/24/2018. FINDINGS: There are hazy infiltrative changes in the left mid and lower lung. No confluent consolidation. No si gnificant effusion. Heart size upper normal. IMPRESSION: Evidence of hazy infiltrate in the left mid and lower lung. Correlate for COVID pneumonia. POS: OFF
[2020-03-10 16:25] LABS: #Eosinphils 0.5 thou/uL (0.0-0.7); #Lymphocytes 1.4 thou/uL (1.20-3.40); #Monocytes 0.6 thou/uL (0.11-0.59); #Neutrophils 5.6 thou/uL (1.40-6.50); %Basophils 0.3 % (0.0-1.0); %Eosinophils 6.4 % (0.0-10.0); %Lymphocytes 17.2 % (21.0-51.0); %Monocytes 7.1 % (0.0-10.0); Hemoglobin 10.2 g/dL (14.0-18.0); Mean Corpuscular HGB CONC 33.5 g/dL (32.0-36.0); Mean Corpuscular Volume 89.6 fL (78.0-98.0); Mean Platelet Volume 8.6 fL (7.4-10.4); Platelet Count 228 thou/uL (130-400); RBC Distribution Width 14.8 % (11.5-14.5); White Blood Cell (WBC) Count 8.1 thou/uL (4.8-10.8)
[2020-03-10] MEDS ORDERED: Ondansetron PF 4 MG/2 ML Vial IVP PRN (16:50)
[2020-03-10] MEDS ORDERED: Calcium Carbonate 500 MG ChewTAB PO PRN (16:50)
[2020-03-10] MEDS ORDERED: Bisacodyl 10 MG SUPP PR PRN (16:50)
[2020-03-10] MEDS ORDERED: Acetaminophen 325 MG TAB PO PRN (16:50)
[2020-03-10] MEDS ORDERED: Senokot S 8.6-50 MG TAB PO PRN (16:50)
[2020-03-10] MEDS ORDERED: Guaifenesin DM 100-10/5 ML UDCUP PO PRN (16:50)
[2020-03-10 16:51] LABS: ALT (SGPT) 8 U/L (8-55); AST (SGOT) 12 U/L (5-34); Albumin 3.8 g/dL (3.4-4.8); Alkaline Phosphatase 90 U/L (40-110); Anion Gap 17 mmol/L (10-20); BUN (Urea Nitrogen) 21 mg/dL (8.4-25.7); Bilirubin, Total 0.6 mg/dL (0.2-1.2); CK (CPK) 76 U/L (30-200); Calc. Creatinine Clearance 0 mL/min (70-130); Carbon Dioxide 26 mmol/L (23-31); Chloride 98 mmol/L (98-107); Estimated GFR-MDRD 12; Globulin 3.3 g/dL (2.4-3.5); Glucose 82 mg/dL (80-115); Potassium 3.4 mmol/L (3.5-5.1); Protein, Total 7.1 g/dL (5.8-8.1); Sodium 138 mmol/L (136-145)
[2020-03-10 17:09] LABS: CKMB 1.1 ng/mL (0-6.6)
--- NOTE | 2020-03-10 18:24 | HP ---
REASON FOR ADMISSION: Near syncope. HISTORY OF PRESENTING ILLNESS: Patient gives history of having 4 hours of dialysis this morning. Postdialysis, patient was waiting for the bus ride and while doing so, he apparently passed out. Bystanders called EMS and patient was brought here. Patient woke up in the ambulance. He has had mild chest pain on the left side almost to the axillary area. No cough or expectoration. No complaints of palpitations, PND, orthopnea at present. Mr. Rios states that he did not eat any food before going for dialysis this morning. He normally ambulates by himself per patient. PAST MEDICAL AND SURGICAL HISTORY: History of end-stage renal disease, on hemodialysis, Tuesday, Tuesday, Tuesday; diabetes mellitus type 2; right upper extremity dialysis access procedures; history of previous CVA with no residual paralysis; history of single nephrectomy; prior echo in 2014 showed ejection fraction of 45% to 50%. CURRENT MEDICATIONS: 1. PhosLo 667 mg p.o. 3 times daily. 2. Sensipar 30 mg p.o. daily. ALLERGIES: NO KNOWN DRUG ALLERGIES. PERSONAL HISTORY: Smokes half pack a day of cigarettes. Does not abuse alcohol or drugs. Lives alone. FAMILY HISTORY: Mother at the age of 94. Father had history of unknown cancer and is diseased. Brother of leukemia and its complication in his 80s. REVIEW OF SYSTEMS: CONSTITUTIONAL: Negative for weight loss or gain, ability to conduct usual activities. SKIN: Negative for rash, itching. EYES: Negative for double vision, pain. ENT/MOUTH: Negative for nose bleeding, neck stiffness, pain, tenderness. CARDIOVASCULAR: Negative for palpitations, dyspnea on exertion, orthopnea. RESPIRATORY: Negative for shortness of breath, wheezing, cough, hemoptysis, fever or night sweats. GASTROINTESTINAL: Negative for poor appetite, abdominal pain, heartburn, nausea, vomiting, constipation, or diarrhea. GENITOURINARY: Negative for urgency, frequency, dysuria, nocturia. MUSCULOSKELETAL: Negative for pain, swelling. NEUROLOGIC/PSYCHIATRIC: Negative for anxiety, depression. ALLERGY/IMMUNOLOGIC: Negative for skin rash, bleeding tendency. CODE STATUS: Full. Power of civil rights attorney is his brother, Mr. Dc Rios. PHYSICAL EXAMINATION: GENERAL: Patient is a 64-year-old male, who is currently not in any acute distress. VITAL SIGNS: Blood pressure 160/120, pulse is 90 per minute, respiratory rate 16 per minute, temperature 98.2 degrees Fahrenheit, saturating 96% on room air. NECK: Supple. No elevated JVD. HEENT: Eyes; extraocular muscles intact. Pupils reacting to light. Oral cavity, mucous membranes are dry. No exudates or congestion. CARDIOVASCULAR SYSTEM: S1, S2 heard, regular rhythm. RESPIRATORY SYSTEM: Air entry 1+ bilateral. No rales or rhonchi. ABDOMEN: Soft, bowel sounds heard. No tenderness, rigidity, or guarding. EXTREMITIES: No peripheral edema or calf tenderness. VASCULAR SYSTEM: Peripheral pulses 1+ bilateral. No ischemic ulcerations or gangrene. CENTRAL NERVOUS SYSTEM: No gross focal deficits noted. Patient is alert, awake, and oriented well. PSYCHIATRIC SYSTEM: Patient's mood is euthymic. No hallucinations or delusions. LABORATORY DATA: EKG done shows sinus rhythm at 127 beats per minute. There is severe LVH strain pattern seen. White count of 8, H 10 and 30, platelet count 228, MCV is 89 with 69% neutrophils. Electrolytes stable. Potassium 3.4, BUN 21, creatinine 5.7, serum glucose 82, magnesium 2.0. Liver enzymes within normal limits. Albumin is 3.8. Troponin I 0.05. Chest x-ray done shows questionable hazy infiltrate in the left mid and lower lung zone to correlate for COVID. CLINICAL IMPRESSION AND PLAN: Patient will be admitted to telemetry for syncopal episode postdialysis. It is unclear if he had excessive volume removed versus patient got tired as he had not had his breakfast or lunch pre or postdialysis. Currently, he is awake and oriented. I have shown his EKGs to Dr. Rossi, who was informally seen those and there is no sign of acute LA. We will give him gentle hydration with normal saline at 70 mL per hour. Orthostatic blood pressures will be obtained. We will place him on aspirin, low-dose Lipitor for now. We will obtain echo with 2D Doppler for LV function. If patient remains stable, might be a candidate for stress test in the morning prior to going home. We will also place him on a small dose of Lopressor 12.5 mg twice daily and Procardia XL 60 mg p.o. daily in view of severe LVH seen and current systolic blood pressures of 160 in the ER. COVID-19 rapid PCR test will be obtained as well for completion sake. Patient is unlikely to have COVID, but given the season, we will obtain a test. Job ID: [id number]
[2020-03-10 19:50] LABS: SARS-CoV-2 NAA Rapid Test Not Detected (NotDetected)
[2020-03-10] MEDS: Sodium Chloride 0.9% 1,000 ML IV SCH (20:17)
[2020-03-10] MEDS: Calcium Acetate 667 MG CAP PO SCH (20:17)
[2020-03-10] MEDS ORDERED: Atorvastatin Calcium 20 MG TAB PO SCH (21:00)
[2020-03-10] MEDS: Heparin 5,000 UNITS/ML VIAL SC SCH (21:57)
[2020-03-10] MEDS: Metoprolol Tartrate 25 MG TAB PO SCH (21:57)
[2020-03-11] MEDS: Sodium Chloride 0.9% 1,000 ML IV SCH (08:00)
[2020-03-11] MEDS ORDERED: NIFEdipine XL 60 MG TAB PO SCH (09:00)
[2020-03-11] MEDS ORDERED: Cinacalcet HCl 30 MG TAB PO SCH (09:00)
[2020-03-11] MEDS ORDERED: Aspirin Chewable 81 MG TAB PO SCH (09:00)
[2020-03-11] MEDS ORDERED: Metoprolol Tartrate 25 MG TAB ONE (10:44)
[2020-03-11] MEDS ORDERED: Aspirin Chewable 81 MG TAB ONE (10:44)
[2020-03-11] MEDS: Metoprolol Tartrate 25 MG TAB PO SCH (11:04)
[2020-03-11] MEDS: Heparin 5,000 UNITS/ML VIAL SC SCH (11:04)
[2020-03-11] MEDS: Calcium Acetate 667 MG CAP PO SCH (11:04)
--- NOTE | 2020-03-12 02:40 | DIS ---
DATE OF ADMISSION: 03/10/2020 DATE OF DISCHARGE: 03/11/2020 Hospitalist discharge summary, status post signing out against medical advice. DISCHARGING DIAGNOSES: 1. Suspected type 2 [id number] elevation myocardial infarction secondary to demand ischemia. 2. End-stage renal disease, on hemodialysis on Mondays, Wednesdays, and Fridays. 3. Diabetes mellitus type 2. 4. History of cerebrovascular accident. 5. History of nephrectomy. 6. Echocardiogram in 2015 shows an ejection fraction of 45% to 50%. 7. Tobacco abuse. HOSPITAL COURSE: This is a 64-year-old gentleman with extensive medical history of ESRD on hemodialysis, CVA, diabetes mellitus, hypertension with history of nephrectomy, presented to the emergency room with complaints of syncope after hemodialysis where the patient was evaluated further in the ER showing elevated troponins without any EKG changes and per ER review with Dr. Rossi, no evidence of myocardial infarction was noted. The patient at this time was advised for a stress test evaluation in hospital along with continued hemodialysis basing on risk factors, but patient unfortunately refused to have any diagnostic evaluation done in the hospital or treatment and wanted to be discharged against medical advice in spite of extensive education and counseling involving risks factors including but not limited to . All questions and concerns were addressed. Patient was also educated in regard to quitting smoking including interventions. On AMA, patient was hemodynamically optimized though. PHYSICAL EXAMINATION: CVS: S1, S2. CHEST: Bilateral air entry present. No rhonchi. No wheeze. ABDOMEN: Soft, nontender. Bowel sounds are present. EXTREMITIES: No cyanosis. DISCHARGE PLAN: The patient was advised and educated about the diagnosis, treatment and followup. The patient has been advised to follow up with his primary care physician as well as Nephrology services as scheduled. No syncopal episodes were noted in the hospital. Cardiology followup was also advised. The whole discharge process including discharge coordination against medical advice took more than 35 minutes. Job ID: [id number]
== END 2020-03-11 15:13 | disposition left against medical advice (07) ==
LOC: ERS 13:32 → ERHOLD 16:50
PROVIDERS: ADMIT Internal Medicine; ATTEND Internal Medicine
DX: R55 Syncope and collapse (principal); I12.0 Hypertensive chronic kidney disease with stage 5 chronic kidney disease or end stage renal disease; E11.22 Type 2 diabetes mellitus with diabetic chronic kidney disease; N18.6 End stage renal disease; N25.81 Secondary hyperparathyroidism of renal origin; F17.210 Nicotine dependence, cigarettes, uncomplicated; R77.8 Other specified abnormalities of plasma proteins; R07.9 Chest pain, unspecified; Z53.29 Procedure and treatment not carried out because of patient's decision for other reasons; Z86.73 Personal history of transient ischemic attack (TIA), and cerebral infarction without residual deficits; Z79.899 Other long term (current) drug therapy; Z90.5 Acquired absence of kidney; Z99.2 Dependence on renal dialysis; Z20.828 Contact with and (suspected) exposure to other viral communicable diseases
CPT/HCPCS: 71045; 82550; 82553; 83735; 84484; 93005; 97139 ×2; 99285; U0002; 36415; 80053; 84443; 85025; G0378; J1644